=== PATIENT | female | born 1990 | race Caucasian/White ===

== ENCOUNTER → 2019-10-09 15:29 | Outpatient (BNVA) | payer MEDICAID, SELFPAY | PROVIDERS: Family Provider Nurse Practitioner Family; PCP Nurse Practitioner Family; Visit Provider Nurse Practitioner Family | DX: M25.579 Pain in unspecified ankle and joints of unspecified foot (principal) | CPT/HCPCS: 73600; 73610 ==

== ENCOUNTER 2020-06-05 12:52 | Emergency (ER) | payer MEDICAID, SELFPAY ==
[2020-06-05] VITALS (7 sets, daily range): BP systolic 121–142; BP diastolic 68–93; PULSE 63–94; RESP 18; TEMP 36.9–37.1; O2SAT 97–99; BMI 21.9
--- NOTE | 2020-06-05 14:48 | CT_ITS ---
WS: [id number] CT ABDOMEN PELVIS TECHNIQUE: Contrast-enhanced CT of the abdomen and pelvis with coronal and sagittal reformatted image s. CLINICAL INFORMATION: gi bleed COMPARISON: None. DLP: 417.[address] scans at [facility] use at least one of these dose optimization techniques: automat ed exposure control; mA and/or kV adjustment per patient size (includes targeted exams where dose is matched to clinical indication); or iterative reconstruction. FINDINGS: Normal liver. Prior cholecystectomy. Normal portal vein and splenic vein. Adrenal glands are normal. Normal renal parenchymal enhancement. No hydronephrosis. Small right renal cyst. Lungs bases are well aerated. Normal pancreas. Normal caliber abdominal aorta. Peripheral enhancing l eft ovarian cystic lesion likely hemorrhagic or corpus luteum cyst measuring 3.1 x 2.8 cm. Tiny amoun t of free fluid in the pelvis. Normal sigmoid colon. No evidence of high-grade small or large bowel o bstruction. Tiny fat-containing umbilical hernia. Lung bases are well aerated. Normal lumbar spine. P rior hysterectomy. CT/CT abdomen pelvis w con* [id number] IMPRESSION: 1. Normal appendix in the right lower quadrant. No evidence of acute appendici tis. 2. No evidence of small or large bowel obstruction. 3. Peripheral enhancing left ovarian cyst measuring 2.8 x 3.0 cm with a small amount of free fluid in the cul-de-sac. This likely represents corpus luteum or hemorrhagic cyst. This can be followed up in one to 2 menstrual cycles with ul trasound pelvis. 4. Normal sigmoid colon. 5. Normal renal parenchymal enhancement. No hydronephrosis. Incidental small r ight renal cyst. 6. Prior cholecystectomy and hysterectomy.
--- NOTE | 2020-06-05 14:48 | W.ED.GIBLEED ---
HPI - GI Bleed General: Chief complaint: GI Bleed Stated complaint: BLEEDING OUT OF RECTUM Time Seen by Provider: 06/05/20 14:48 Source: patient Mode of arrival: ambulatory Limitations: no limitations History of Present Illness: HPI Narrative: Patient comes in today with episodes of blood in stool starting today. Patient has reported some lower abdominal pain for the last 2 days. Patient appears well. Patient appears in no acute distress. MD complaint: gross hematochezia Review of Systems General: Reports: 10 or more systems reviewed and unremarkable except in HPI and below GI: Reports: hematochezia PFSH ED PFSH: Social History (Updated 10/09/19 @ 15:23 by Gretchen Cazares LPN) Smoking and tobacco status: current every day smoker Alcohol intake: current Physical Exam Const: COMMON NORMALS: no acute distress and patient oriented x3 GENERAL APPEARANCE: cooperative HENMT: COMMON NORMALS: normocephalic and Normal external nose present HEAD & SCALP: normal to inspection and normocephalic NOSE: Normal external nose present MOUTH: Normal oral and palatal mucosa present THROAT: posterior oropharynx normal Eye: GENERAL EYE: appearance normal, both eyes and all related structures Neck/C-Spine: COMMON NORMALS: full ROM Lymph: LYMPHATIC: no lymphadenopathy noted Chest: COMMONS NORMALS: normal inspection of the chest Resp: COMMON NORMALS: normal respiratory effort EFFORT & INSPECTION: Yes able to speak in complete sentences Cardio: COMMON NORMALS: regular rate and regular rhythm RATE: regular rate RHYTHM: regular rhythm GI: COMMON NORMALS: non-tender RECTAL EXAM: normal sphincter tone and heme positive stool : COMMON NORMALS: Yes no CVA tenderness BLADDER/KIDNEY EXAM: Yes no CVA tenderness Back/Pelvis: COMMON NORMALS: no CVA tenderness and thoracic and lumbar spine normal to inspection Extremity: COMMON NORMALS: normal to inspection Neuro: COMMON NORMALS: patient oriented x3 and moves all extremities Psych: COMMON NORMALS: mental status grossly normal and cooperative Skin: COMMON NORMALS: no rashes or lesions noted GENERAL SKIN EXAM: no rashes or lesions noted Course Vital Signs: Vital signs: Vital Signs Temperature 98.5 F 06/05/20 12:56 Pulse Rate 71 06/05/20 17:20 Respiratory Rate 18 06/05/20 17:20 Blood Pressure 122/75 06/05/20 17:20 Pulse Oximetry 97 12/29/20 17:20 MDM - GI Bleed MDM Narrative: Medical decision making narrative: Patient comes in today with complaints of blood in stool. On exam patient's abdomen soft with some lower abdominal tenderness. Bowel sounds are present. Skin is warm and dry. Vital signs are normal. Respirations are even lungs are clear to auscultation. Differential diagnosis includes diverticulitis, colitis, appendicitis, tumor or mass. Laboratory values noted a hemoglobin of 12.9 with hematocrit of 39.3. CMP was normal. Liver enzymes were normal. White blood cell count was slightly elevated 11,000. Rectal exam did note some sara blood with a positive Hemoccult. CT scan noted no significant abnormality in the bowel, it did note a ovarian cyst. Reviewed exam with patient recommended Cipro and Flagyl for treatment of probable colitis or bacterial gastroenteritis. Also recommended patient follow-up for colonoscopy for evaluation of blood in the rectum. Patient reported understanding agreed to plan. Case management referral placed during the blood per rectum. Lab Data: Labs: Lab Results 06/05/20 06/05/20 06/05/20 Range/Units 14:42 14:55 14:55 WBC 11.0 H (4.0-10.0) 10^3/ uL RBC 4.14 (4.1-5.3) 10^6/u L Hgb 12.9 (11.5-15.3) g/dL Hct 39.3 (37.0-47.0) % MCV 94.9 (81-99) fL MCH 31.2 (28.0-34.0) pg MCHC 32.8 (30.0-36.0) g/dL RDW 12.6 (12.1-15.1) % Plt Count 235 (130-400) 10^3/c mm MPV 11.3 H (7.4-10.4) fL Neut % (Auto) 69.2 % Lymph % (Auto) 26.5 % [place] % (Auto) 3.6 % Eos % (Auto) 0.0 % Baso % (Auto) 0.3 % Neut # (Auto) 7.63 (1.8-7.7) 10^3/u L Lymph # (Auto) 2.9 (0.8-4.8) 10^3/u L [place] # (Auto) 0.4 (0.2-0.9) 10^3/u L Eos # (Auto) 0.0 (0.0-0.8) 10^3/u L Baso # (Auto) 0.0 (0.0-0.1) 10^3/u L Nucleated RBC % (a uto) 0 % Nucleated RBCs # 0.0 /100WBC Sodium 138 (136-145) mmol/L Potassium 3.9 (3.5-5.1) mmol/L Chloride 105 (98-107) mmol/L Carbon Dioxide 23 (22-29) mmol/L Anion Gap 13.9 (5-19) BUN 9 (6-20) mg/dL Creatinine 0.7 (0.5-0.9) mg/dL GFR Calculation 97.6 (90-130) mL/min Glucose 87 (65-115) mg/dL Calculated Osmolal ity 284 L (285-295) mOsm/k g Calcium 9.5 (8.5-10.5) mg/dL Total Bilirubin 0.3 (0.15-1.2) mg/dL AST 16 (0-32) U/L ALT 13 (0-33) U/L Alkaline Phosphata se 68 (35-105) IU/L Total Protein 7.2 (6.6-8.7) g/dL Albumin 4.4 (3.5-5.2) g/dL Globulin 2.8 (1.3-4.6) g/dL Lipase 29 (13-60) U/L HCG, Qual (Negative) Urine Color Yellow (Yellow) Urine Appearance Clear (CLEAR) Urine pH 5 (5-7) Ur Specific Gravit y 1.005 (1.005-1.030) Urine Protein Neg (Negative) Urine Glucose (UA) Norm (Normal) Urine Ketones 1+ H (Negative) Urine Blood Neg (Negative) Urine Nitrate Negative (Negative) Urine Bilirubin Neg (Negative) Urine Urobilinogen Norm (Negative) mg/dL Ur Leukocyte Rosanna ase Negative (Negative) 06/05/20 Range/Units 14:55 WBC (4.0-10.0) 10^3/ uL RBC (4.1-5.3) 10^6/u L Hgb (11.5-15.3) g/dL Hct (37.0-47.0) % MCV (81-99) fL MCH (28.0-34.0) pg MCHC (30.0-36.0) g/dL RDW (12.1-15.1) % Plt Count (130-400) 10^3/c mm MPV (7.4-10.4) fL Neut % (Auto) % Lymph % (Auto) % [place] % (Auto) % Eos % (Auto) % Baso % (Auto) % Neut # (Auto) (1.8-7.7) 10^3/u L Lymph # (Auto) (0.8-4.8) 10^3/u L [place] # (Auto) (0.2-0.9) 10^3/u L Eos # (Auto) (0.0-0.8) 10^3/u L Baso # (Auto) (0.0-0.1) 10^3/u L Nucleated RBC % (a uto) % Nucleated RBCs # /100WBC Sodium (136-145) mmol/L Potassium (3.5-5.1) mmol/L Chloride (98-107) mmol/L Carbon Dioxide (22-29) mmol/L Anion Gap (5-19) BUN (6-20) mg/dL Creatinine (0.5-0.9) mg/dL GFR Calculation (90-130) mL/min Glucose (65-115) mg/dL Calculated Osmolal ity (285-295) mOsm/k g Calcium (8.5-10.5) mg/dL Total Bilirubin (0.15-1.2) mg/dL AST (0-32) U/L ALT (0-33) U/L Alkaline Phosphata se (35-105) IU/L Total Protein (6.6-8.7) g/dL Albumin (3.5-5.2) g/dL Globulin (1.3-4.6) g/dL Lipase (13-60) U/L HCG, Qual Negative (Negative) Urine Color (Yellow) Urine Appearance (CLEAR) Urine pH (5-7) Ur Specific Gravit y (1.005-1.030) Urine Protein (Negative) Urine Glucose (UA) (Normal) Urine Ketones (Negative) Urine Blood (Negative) Urine Nitrate (Negative) Urine Bilirubin (Negative) Urine Urobilinogen (Negative) mg/dL Ur Leukocyte Rosanna ase (Negative) Discharge Plan Discharge Patient Disposition: Home Clinical Impression: Hematochezia Condition: Stable Prescriptions: New Cipro 500 mg tablet 500 mg PO BID Qty: 10 RF: 0 metronidazole 500 mg tablet 500 mg PO BID Qty: 10 RF: 0 No Action Tylenol 325 mg Tablet 325 - 650 mg PO Q6H PRN (Reason: PAIN/FEVER) RF: 0 Discharge Orders: Discharge ED (Routine); Ordered 06/05/20 Ordered By: Lucius Pickard Referrals: Simin Tamayo FNP [Primary Care Provider] - Discharge Diet: Usual diet Discharge Activity: Increase activity as tolerated Activity Restrictions/Additional Instructions: Drink plenty of fluids. Take medication as directed. Follow-up with primary care. Follow-up with section laborer/surgeon for endoscopy. Return to the emergency department for new concerns. Coding Level of Care Code ED Systems Integration Manager for [place]ter Fwd Exam Comprehensive
[2020-06-05 15:11] LABS: Add Urine Microscopic? NO
[2020-06-05 15:12] LABS: Basophils % 0.3 %; Hematocrit 39.3 % (37.0-47.0); Hemoglobin 12.9 g/dL (11.5-15.3); Lymphocytes # 2.9 10^3/uL (0.8-4.8); Lymphocytes % 26.5 %; Mean Corpuscular HGB Conc 32.8 g/dL (30.0-36.0); Mean Corpuscular Hemoglobin 31.2 pg (28.0-34.0); Mean Corpuscular Volume 94.9 fL (81-99); Mean Platelet Volume 11.3 fL (7.4-10.4); Monocytes # 0.4 10^3/uL (0.2-0.9); Monocytes % 3.6 %; Neutrophils # 7.63 10^3/uL (1.8-7.7); Neutrophils % 69.2 %; Nucleated Red Blood Cells % 0 %; Platelet Count 235 10^3/cmm (130-400); Red Blood Count 4.14 10^6/uL (4.1-5.3); Red Cell Distribution Width 12.6 % (12.1-15.1)
[2020-06-05 15:13] LABS: Bilirubin Urine Neg (Negative); Blood Urine Neg (Negative); Glucose Urine UA Norm (Normal); Ketones Urine 1+ (Negative); Leukocyte Esterase Urine Negative (Negative); Nitrate Urine Negative (Negative); Protein Urine Neg (Negative); Specific Gravity, Urine 1.005 (1.005-1.030); Urine Appearance Clear (CLEAR); Urine Color Yellow (Yellow); Urobilinogen Urine Norm (Negative); pH Urine 5 (5-7)
[2020-06-05 15:25] LABS: HCG, Serum Qual Negative (Negative)
[2020-06-05 15:31] LABS: Alanine Aminotransferase 13 U/L (0-33); Albumin Level 4.4 g/dL (3.5-5.2); Alkaline Phosphatase 68 IU/L (35-105); Anion Gap 13.9 (5-19); Aspartate Amino Transferase 16 U/L (0-32); Blood Urea Nitrogen 9 mg/dL (6-20); Calcium 9.5 mg/dL (8.5-10.5); Carbon Dioxide 23 mmol/L (22-29); Chloride 105 mmol/L (98-107); Globulin 2.8 g/dL (1.3-4.6); Glomerular Filtration Rate 97.6 mL/min (90-130); Glucose 87 mg/dL (65-115); Lipase 29 U/L (13-60); Osmolality Calculated 284 mOsm/kg (285-295); Potassium 3.9 mmol/L (3.5-5.1); Sodium 138 mmol/L (136-145); Total Bilirubin 0.3 mg/dL (0.15-1.2); Total Protein 7.2 g/dL (6.6-8.7)
[2020-06-05] MEDS: iohexol 300 mg/mL 100 mL Btl IV (16:20)
--- NOTE | 2020-06-06 08:53 | DCPLANNER ---
manager consumer had message to schedule a follow up appointment for patient with general surgery. manager consumer emailed Gabriel at general surgery patients information. Patients information will be printed and reviewed. Clinic will call patient with appointment information.
--- NOTE | 2020-06-08 10:11 | DCPLANNER ---
Patient has a follow up appointment scheduled for Thursday, June 11, [address] at 9:[address] Lopez. Clinic will call patient with appointment information.
--- NOTE | 2020-06-27 15:52 | DCPLANNER ---
Patient had a follow up appointment scheduled for 06.11.20 with general surgery - patient did attend the appointment.
== END 2020-06-05 17:29 | disposition home or self-care (01) ==
PROVIDERS: Emergency Provider Nurse Practitioner Family; PCP Nurse Practitioner Family
DX: K92.1 Melena (principal); F17.210 Nicotine dependence, cigarettes, uncomplicated
CPT/HCPCS: 12345; 74177; 80053; 81003; 82272; 83690; 84703; 85025; 99283; Q9967

== ENCOUNTER → 2020-06-11 14:40 | Outpatient (BNVA) | payer MEDICAID, SELFPAY | PROVIDERS: PCP Nurse Practitioner Family; Visit Provider Nurse Practitioner Family | DX: K92.1 Melena (principal); R10.31 Right lower quadrant pain | CPT/HCPCS: 80053; 85025 ==

== ENCOUNTER → 2020-06-21 13:26 | Outpatient (BNVA) | payer MEDICAID, SELFPAY | PROVIDERS: PCP Nurse Practitioner Family; Visit Provider Nurse Practitioner Family | DX: R10.31 Right lower quadrant pain (principal) | CPT/HCPCS: 81003; 85025; 87086 ==

== ENCOUNTER → 2020-06-22 11:14 | Outpatient (BNVA) | payer MEDICAID, SELFPAY | PROVIDERS: PCP Nurse Practitioner Family; Visit Provider Surgery | DX: R10.31 Right lower quadrant pain (principal) | CPT/HCPCS: 87635 ==

== ENCOUNTER 2020-06-27 05:46 | Day surgery (SDC) | payer MEDICAID, SELFPAY ==
[2020-06-25 13:44] VITALS: BMI 20.9
[2020-06-27 06:14] VITALS: BP 119/78; PULSE 89; RESP 18; TEMP 36.6; O2SAT 97
--- NOTE | 2020-06-27 06:15 | W.PM.OPSUD ---
Surgery/Procedure H&P Update DATE OF PROCEDURE: June 27, 2020 DATE H&P PERFORMED: 06/11/20 H&P UPDATE INFORMATION: I have reviewed H&P completed within last 30 days, I have examined patient prior to procedure and No changes to prior documentation PREOP DIAGNOSIS: Bleeding per rectum PRIMARY INDICATION FOR PROCEDURE: The same and Abdominal pain PLANNED PROCEDURE: Operation Date: 06/27/20 07:00 Proposed Procedures p EGD 00285 36091 R10.31 K62.5(Not Applicable) - Louie Lopez MD s Colonoscopy(Not Applicable) - Louie Lopez MD
[2020-06-27] MEDS: sodium chloride 0.9% 1,000 ML 30 ML IV (06:20)
--- NOTE | 2020-06-27 06:36 | ANES.PREANE2 ---
Pre-Anesthetic Assessment Pre-Anesthetic Assessment: Height/Weight: Height 1.68 m Weight 58.967 kg Temp Pulse Resp BP Pulse Ox 97.8 F 89 18 119/78 97 06/27/20 06:14 06/27/20 06:14 06/27/20 06:14 06/27/20 06:14 06/27/20 06:14 Preop Diagnosis: Bleeding per rectum Proposed Procedure: Operation Date: 06/27/20 07:00 Proposed Procedures p EGD [id number] R10.31 K62.5(Not Applicable) - Louie Lopez MD s Colonoscopy(Not Applicable) - Louie Lopez MD Familial anesthetic complications: Mom takes forever to wake up Was Beta Leonardo taken within 24 hours: N/A Last intake: Intake NPO > 8 hrs Last Liquid Date 06/26/20 Last Solid Date 06/25/20 Social: Social History: Tobacco Exam: Pre-Anes Outpt Exam: alert, oriented x 3, clear to auscultation bilaterally and regular rate & rhythm Airway: Cervical ROM: WNL MP: 2 Additional comments: extremely poor dentition, rotting, chipped, missing in majority of teeth Pulmonary: Pulmonary: Asthma Anesthetic Plan: ASA status: 2 Anesthesia: MAC Risk of > 500 ml blood loss (7ml/kg in children): No Meds/Allergies Current Medications: Current Medications Generic Name Dose Route Start Last Admin Trade Name Freq PRN Reason Stop Dose Admin Sodium Chloride 1,000 mls @ 30 ml s/hr 06/27/20 06:15 06/27/20 06:20 Sodium Chloride 0.9% IV 06/28/20 06:14 30 mls/hr .Q24H DOMINICK Administration PFSH Anesthesia PFSH: Medical History delivery delivered x 3 H/O cancer of uterus H/O polycystic ovarian syndrome Surgical History H/O laparoscopy H/O skin graft on left lower leg History of hysterectomy for cancer still has ovaries Hx of cholecystectomy Hx of tubal ligation S/P tonsillectomy and adenoidectomy Family History Mother Anesthesia complication Father Hypertension Grandfather Cancer colon cancer, melanoma Other Diabetes Denies family history of CAD (coronary artery disease) Bleeding disorder Social History Smoking and tobacco status: current every day smoker cigarettes Packs smoked per day: 1.5 Years cigarettes smoked: 20 [ Other cigarette details: 2 PPD if stressed ] Second hand smoke exposure: Yes Alcohol intake: never Lives independently: Yes Household members: spouse Marital status: Current occupational status: employed 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
[2020-06-27 07:34] VITALS: BP 130/91; PULSE 78; RESP 18; TEMP 36.1; O2SAT 99
--- NOTE | 2020-06-27 07:38 | ANE.PACU2 ---
Inpatient post-anesthesia follow up: Airway intact: Yes Vital signs: Temperature 97 F Pulse Rate 78 Respiratory Rate 18 Blood Pressure 130/91 Pulse Oximetry 99 Oxygen Delivery Me thod Room Air Oxygen Flow Rate Fraction of Inspir ed Oxygen Hydration adequate: Yes Nausea and vomiting: No Pain level: 1 Mental status: Baseline
[2020-06-27 07:47] VITALS: BP 114/78; PULSE 64; RESP 18; O2SAT 98
--- NOTE | 2020-06-27 18:32 | ANE.PACU2 ---
Inpatient post-anesthesia follow up: Airway intact: Yes Vital signs: Temperature 97 F Pulse Rate 64 Respiratory Rate 18 Blood Pressure 114/78 Pulse Oximetry 98 Oxygen Delivery Me thod Room Air Oxygen Flow Rate Fraction of Inspir ed Oxygen Hydration adequate: Yes Nausea and vomiting: No Pain level: 1 Mental status: Baseline
[2020-06-28 05:56] LABS: H. Pylori / CLO Test Negative
== END 2020-06-27 08:03 | disposition home or self-care (01) ==
PROVIDERS: PCP Nurse Practitioner Family; Visit Provider Surgery
PROC: 0DJ08ZZ Inspection of Upper Intestinal Tract, Via Natural or Artificial Opening Endoscopic (ICD-10-PCS; CPT 43235; principal; 2020-06-27 07:00)
PROC: 0DJD8ZZ Inspection of Lower Intestinal Tract, Via Natural or Artificial Opening Endoscopic (ICD-10-PCS; CPT 45378; 2020-06-27 07:00)
DX: K62.5 Hemorrhage of anus and rectum (principal); F17.210 Nicotine dependence, cigarettes, uncomplicated; K64.4 Residual hemorrhoidal skin tags; K21.9 Gastro-esophageal reflux disease without esophagitis; K29.70 Gastritis, unspecified, without bleeding; J45.909 Unspecified asthma, uncomplicated; Z85.42 Personal history of malignant neoplasm of other parts of uterus; E28.2 Polycystic ovarian syndrome
CPT/HCPCS: 12345; 43239; 45378; 82274; 83630; 87077; 87493; 87506; 88305; J2704; J7030

== ENCOUNTER → 2021-05-07 10:41 | Outpatient (BNVA) | payer BC, MEDICAID, SELFPAY | PROVIDERS: PCP Nurse Practitioner Family; Visit Provider Nurse Practitioner Family | DX: G43.909 Migraine, unspecified, not intractable, without status migrainosus (principal); Z13.6 Encounter for screening for cardiovascular disorders; R59.1 Generalized enlarged lymph nodes; R63.4 Abnormal weight loss | CPT/HCPCS: 80053; 80061; 81000; 82306; 82607; 83735; 84443; 85025; 87491; 87591; 87661 ==

== ENCOUNTER → 2021-05-13 10:35 | Outpatient (BNVA) | payer BC, MEDICAID, SELFPAY | PROVIDERS: PCP Nurse Practitioner Family; Visit Provider Nurse Practitioner Family | DX: R63.4 Abnormal weight loss (principal) | CPT/HCPCS: 81003 ==

== ENCOUNTER 2021-05-17 01:13 | Emergency (ER) | payer BC, MEDICAID, SELFPAY ==
[2021-05-17 01:14] VITALS: BP 138/89; PULSE 108; RESP 16; TEMP 36.5; O2SAT 97; BMI 17.6
--- NOTE | 2021-05-17 01:24 | CTR_ITS ---
PROCEDURE INFORMATION: Exam: CT Head Without Contrast Exam date and time: 05/17/2021 1:24 AM Age: 31 years old Clinical indication: Patient HX: Patient reported to have had seizure activity while at work. Patient is lethargic. No loc. TECHNIQUE: Imaging protocol: Computed tomography of the head without contrast. Radiation optimization: All CT scans at this facility use at least one of these dose optimization techniques: automated exposure control; mA and/or kV adjustment per patient size (includes targeted exams where dose is matched to clinical indication); or iterative reconstruction. COMPARISON: No relevant prior studies available. RADIATION DOSE METRICS: Total DLP (mGy-cm): 769.55 FINDINGS: Limitations: Motion artifacts. Brain: No suggestion of abnormal density in the brain or acute intracranial hemorrhage. Cerebral ventricles: No ventriculomegaly. Paranasal sinuses: Visualized sinuses unremarkable. Mastoid air cells: Visualized mastoids unremarkable. Orbital cavity: Possible dysconjugate gaze. Bones/joints: Unremarkable. No acute fracture. Soft tissues: Unremarkable. CT/CT head wo con* [id number] IMPRESSION: No acute finding.
--- NOTE | 2021-05-17 01:30 | ED_ITS ---
HPI - Seizure General: Chief Complaint: Seizure Stated Complaint: SEIZURE Time Seen by Provider: 05/17/21 01:19 Source: patient Mode of arrival: ambulatory Limitations: no limitations History of Present Illness: HPI Narrative: 31-year-old female who is here with EMS for possible seizure per EMS she has had 8 supposed seizures in the last 30 minutes they state of the parents of pseudoseizures she does not have stop breathing does not have any LOC and has been speaking through them. Patient states she is been under a lot of stress has had some generalized weakness denies any vomiting denies any diarrhea she was at work tonight when she had these attacks. She denies headache denies any head injury. Associated symptoms: Deny chest pain, chills or fever(s) Review of Systems Const: Denies: fever(s), chills, body aches or change in appetite Eyes: Denies: blurry vision or eye discomfort ENMT: Denies: throat pain or dental pain Card: Denies: chest pain Resp: Denies: dyspnea GI: Denies: abdominal pain, nausea, vomiting or diarrhea : Denies: dysuria Musc: Denies: neck pain or back pain Skin/Breast: Denies: rash Neuro: Reports: seizure-like activity Psych: Denies: depression Jay/Lymph: Denies: easy bruising All/Imm: Denies: urticaria PFSH ED PFSH: Medical History delivery delivered x 3 H/O cancer of uterus H/O polycystic ovarian syndrome Surgical History H/O laparoscopy H/O skin graft on left lower leg History of colonoscopy (~06/2020) History of esophagogastroduodenoscopy (EGD) (~06/2020) History of hysterectomy for cancer still has ovaries Hx of cholecystectomy Hx of tubal ligation S/P tonsillectomy and adenoidectomy Family History Mother Anesthesia complication Father Hypertension Grandfather Cancer colon cancer, melanoma Other Diabetes Denies family history of CAD (coronary artery disease) Bleeding disorder Social History Smoking and tobacco status: current every day smoker cigarettes Packs smoked per day: 1.5 Years cigarettes smoked: 20 [ Other cigarette details: 2 PPD if stressed ] Second hand smoke exposure: Yes Alcohol intake: never Lives independently: Yes Household members: spouse Marital status: Current occupational status: employed Current occupation: [employer] History of recent travel: No Current gender identity: Female Physical Exam Const: COMMON NORMALS: no acute distress, patient oriented x3 and healthy appearing HENMT: COMMON NORMALS: normocephalic and atraumatic HEAD & SCALP: normocephalic and atraumatic Eye: COMMON NORMALS: Equal, round and reactive pupils present and EOMs intact bilaterally PUPIL: Yes Equal, round and reactive pupils present Neck/C-Spine: COMMON NORMALS: full ROM and supple Chest: COMMONS NORMALS: normal inspection of the chest and normal palpation of entire chest wall Resp: COMMON NORMALS: normal respiratory effort, No retractions, No use of accessory muscles and clear to auscultation bilaterally AUSCULTATION: clear to auscultation bilaterally Cardio: COMMON NORMALS: regular rhythm and No murmurs present (Cardio) RATE: tachycardic RHYTHM: regular rhythm GI: COMMON NORMALS: Normal to inspection, nondistended, normoactive bowel sounds present, Soft to palpation, non-tender and no masses PALPATION: Yes Soft to palpation Extremity: COMMON NORMALS: normal to inspection and full ROM Neuro: COMMON NORMALS: patient oriented x3, moves all extremities and no focal motor deficits Psych: COMMON NORMALS: mental status grossly normal, Normal thought process present and cooperative THOUGHT PROCESS: Normal thought process present Skin: COMMON NORMALS: no rashes or lesions noted and no wounds GENERAL SKIN EXAM: no rashes or lesions noted Course Vital Signs: Vital signs: Vital Signs Temperature 97.7 F 05/17/21 01:14 Pulse Rate 64 05/17/21 04:07 Respiratory Rate 18 05/17/21 04:07 Blood Pressure 106/64 05/17/21 04:07 Pulse Oximetry 98 05/17/21 04:07 MDM - Seizure MDM Narrative: Medical decision making narrative: Patient presents here with a possible seizure patient hears improved after Ativan blood work head CT are all normal unsure if this is an actual seizure she has no history of seizures will not start any meds at this time she is to follow-up with neurology return if worsening patient's back to her baseline is well-appearing here ambulatory patient discharged with her . Lab Data: Labs: Lab Results 05/17/21 05/17/21 05/17/21 02:58 02:58 02:58 WBC 11.1 10^3/uL H 10 ^3/uL (4.0-10.0) RBC 3.41 10^6/uL L 10 ^6/uL (4.1-5.3) Hgb 10.8 g/dL L g/dL (11.5-15.3) Hct 32.3 % L % (37.0-47.0) MCV 94.7 fl fl (81-99) MCH 31.7 pg pg (28.0-34.0) MCHC 33.4 g/dL g/dL (30.0-36.0) RDW 11.9 % L % (12.1-15.1) Plt Count 209 10^3/cmm 10^3 /cmm (130-400) MPV 11.0 fL H fL (7.4-10.4) Neut % (Auto) 71.5 % % Lymph % (Auto) 24.0 % % [place] % (Auto) 4.0 % % Eos % (Auto) 0.1 % % Baso % (Auto) 0.2 % % Neut # (Auto) 7.92 10^3/uL H 10 ^3/uL (1.8-7.7) Lymph # (Auto) 2.7 10^3/uL 10^3/ uL (0.8-4.8) [place] # (Auto) 0.4 10^3/uL 10^3/ uL (0.2-0.9) Eos # (Auto) 0.0 10^3/uL 10^3/ uL (0.0-0.8) Baso # (Auto) 0.0 10^3/uL 10^3/ uL (0.0-0.1) Nucleated RBC % (a uto) 0 % % Nucleated RBCs # 0.0 /100WBC /100W BC Sodium 140 mmol/L mmol/L (136-145) Potassium 4.2 mmol/L mmol/L (3.5-5.1) Chloride 109 mmol/L H mmol /L (98-107) Carbon Dioxide 20 mmol/L L mmol/ L (22-29) Anion Gap 15.2 (5-19) BUN 7 mg/dL mg/dL (6-20) Creatinine 0.6 mg/dL mg/dL (0.5-0.9) GFR Calculation 115.9 mL/min mL/m in (90-130) Glucose 93 mg/dL mg/dL (65-115) Calculated Osmolal ity 288 mOsm/kg mOsm/ kg (285-295) Calcium 7.7 mg/dL L mg/dL (8.5-10.5) Total Bilirubin 0.2 mg/dL mg/dL (0.15-1.2) AST 10 U/L U/L (0-32) ALT 8 U/L U/L (0-33) Alkaline Phosphata se 48 IU/L IU/L (35-105) Total Protein 5.2 g/dL L g/dL (6.6-8.7) Albumin 3.5 g/dL g/dL (3.5-5.2) Globulin 1.7 g/dL g/dL (1.3-4.6) HCG, Qual Negative (Negative) Imaging Data^: CT Head: Attestation: I personally reviewed and interpreted this imaging study as follows: Radiologist's impression: [address] [address] [address] Scan Report Signed Patient: Christel Altamirano Unit #: [id number] : 1990 Acct#:O [id number] Age/Sex: 31 / F ADM Date: 05/17/21 Loc: ER Room/Bed: Attending Dr: Ordering Provider/Ordering MD: Karen Frey MD Date of Service: 05/17/21 Procedure(s): CT head wo con* [id number] Accession Number(s): [id number] Report Number: [id number] PROCEDURE INFORMATION: Exam: CT Head Without Contrast Exam date and time: 05/17/2021 1:24 AM Age: 31 years old Clinical indication: Patient HX: Patient reported to have had seizure activity while at work. Patient is lethargic. No loc. TECHNIQUE: Imaging protocol: Computed tomography of the head without contrast. Radiation optimization: All CT scans at this facility use at least one of these dose optimization techniques: automated exposure control; mA and/or kV adjustment per patient size (includes targeted exams where dose is matched to clinical indication); or iterative reconstruction. COMPARISON: No relevant prior studies available. RADIATION DOSE METRICS: Total DLP (mGy-cm): 769.55 FINDINGS: Limitations: Motion artifacts. Brain: No suggestion of abnormal density in the brain or acute intracranial hemorrhage. Cerebral ventricles: No ventriculomegaly. Paranasal sinuses: Visualized sinuses unremarkable. Mastoid air cells: Visualized mastoids unremarkable. Orbital cavity: Possible dysconjugate gaze. Bones/joints: Unremarkable. No acute fracture. Soft tissues: Unremarkable. CT/CT head wo con* [id number] IMPRESSION: No acute finding. Dictated By: Megan Romero MD Signed By: Megan Romero MD Signed Date/Time: 05/17/21201 DD/ 3 EKG Data^: EKG 1: Attestation: I personally reviewed and interpreted this EKG as follows: EKG interpretation date: 05/17/21 EKG interpretation time: 01:29 Interpretation: sinus tach hr [address] or t wave abnormalities qrs 95 qtc 409 Discharge Plan Discharge Patient Disposition: Home Clinical Impression: Generalized seizure Condition: Stable Prescriptions: No Action pantoprazole [Protonix] 40 mg tablet,delayed release (DR/EC) 40 mg PO DAILY Qty: 30 RF: 1 ondansetron 4 mg tablet,disintegrating 4 mg PO Q8H PRN (Reason: nausea and vomiting) Qty: 30 RF: 1 acetaminophen [Tylenol] 325 mg Tablet 325 - 650 mg PO Q6H PRN (Reason: PAIN/FEVER) RF: 0 Discharge Orders: Discharge ED (Routine); Ordered 05/17/21 Ordered By: Karen Frye Referrals: Olga Krueger MD [Physician] - 1-3 days Discharge Diet: Advance as tolerated Discharge Activity: Resume usual activity Patient Instructions: Recurrent Seizures in Adults (ED) Coding Level of Care Code ED Paper Mill Manager for Chg Fwd Exam Comprehensive
[2021-05-17 01:31] VITALS: BP 133/84; PULSE 114; RESP 20; O2SAT 100
[2021-05-17] MEDS: sodium chloride 0.9% 1,000 ML 999 ML IV (01:33)
[2021-05-17] MEDS: LORazepam 2 mg/mL INJ 1 mL 1 MG IVP (01:33)
[2021-05-17 02:57] VITALS: BP 106/48; PULSE 85; RESP 18; O2SAT 97
[2021-05-17 03:10] LABS: Basophils % 0.2 %; Eosinophils % 0.1 %; Hematocrit 32.3 % (37.0-47.0); Hemoglobin 10.8 g/dL (11.5-15.3); Lymphocytes # 2.7 10^3/uL (0.8-4.8); Mean Corpuscular HGB Conc 33.4 g/dL (30.0-36.0); Mean Corpuscular Hemoglobin 31.7 pg (28.0-34.0); Mean Corpuscular Volume 94.7 fl (81-99); Monocytes # 0.4 10^3/uL (0.2-0.9); Neutrophils # 7.92 10^3/uL (1.8-7.7); Neutrophils % 71.5 %; Nucleated Red Blood Cells % 0 %; Platelet Count 209 10^3/cmm (130-400); Red Blood Count 3.41 10^6/uL (4.1-5.3); Red Cell Distribution Width 11.9 % (12.1-15.1); White Blood Count 11.1 10^3/uL (4.0-10.0)
[2021-05-17 03:30] LABS: HCG, Serum Qual Negative (Negative)
[2021-05-17 03:31] LABS: Alanine Aminotransferase 8 U/L (0-33); Albumin Level 3.5 g/dL (3.5-5.2); Alkaline Phosphatase 48 IU/L (35-105); Aspartate Amino Transferase 10 U/L (0-32); Blood Urea Nitrogen 7 mg/dL (6-20); Calcium 7.7 mg/dL (8.5-10.5); Carbon Dioxide 20 mmol/L (22-29); Chloride 109 mmol/L (98-107); Globulin 1.7 g/dL (1.3-4.6); Glomerular Filtration Rate 115.9 mL/min (90-130); Glucose 93 mg/dL (65-115); Osmolality Calculated 288 mOsm/kg (285-295); Sodium 140 mmol/L (136-145); Total Bilirubin 0.2 mg/dL (0.15-1.2); Total Protein 5.2 g/dL (6.6-8.7)
[2021-05-17 03:32] LABS: Anion Gap 15.2 (5-19); Potassium 4.2 mmol/L (3.5-5.1)
[2021-05-17 04:07] VITALS: BP 106/64; PULSE 64; RESP 18; O2SAT 98
[2021-05-17 05:41] VITALS: BP 92/44; PULSE 62; RESP 18; O2SAT 97
--- NOTE | 2021-05-20 14:15 | DCPLANNER ---
Addendum entered by Ina Lakhani 06/05/21 08:06: Patient had an appointment scheduled with Dr. Burton office, but appointment was cancelled. Original Note: human resources project manager had message to schedule a follow up appointment for patient with Dr. Krueger. human resources project manager emailed patients information to the neurology clinic. Patients information will be printed and reviewed. Clinic will call patient with appointment information.
== END 2021-05-17 05:43 | disposition home or self-care (01) ==
PROVIDERS: Emergency Provider Emergency Medicine
DX: G40.89 Other seizures (principal); Z85.42 Personal history of malignant neoplasm of other parts of uterus; F17.210 Nicotine dependence, cigarettes, uncomplicated
CPT/HCPCS: 70450; 80053; 84703; 85025; 96361; 96374; 99283; J2060; J7030

== ENCOUNTER → 2021-05-21 11:15 | Outpatient (BNVA) | payer BC, MEDICAID, SELFPAY | PROVIDERS: Visit Provider Nurse Practitioner Family | DX: R56.9 Unspecified convulsions (principal); M25.552 Pain in left hip; J02.9 Acute pharyngitis, unspecified; G43.909 Migraine, unspecified, not intractable, without status migrainosus | CPT/HCPCS: 73502; 87071; 87880 ==

== ENCOUNTER 2021-07-19 10:39 | Outpatient (CLI) | payer BC, MEDICAID, SELFPAY ==
--- NOTE | 2021-07-19 10:43 | CT_ITS ---
WS: [id number] CT CHEST TECHNIQUE: Noncontrast CT of the chest with coronal and sagittal reformatted images. CLINICAL INFORMATION: R63.4 - Abnormal weight loss COMPARISON: None. DLP: 489.[address] scans at [facility] use at least one of these dose optimization techniques: automated e xposure control; mA and/or kV adjustment per patient size (includes targeted exams where dose is matc hed to clinical indication); or iterative reconstruction. FINDINGS: Both lungs well aerated. No acute pulmonary infiltrates. No focal pneumonia or pleural fluid. No medi astinal or hilar lymphadenopathy. No axillary lymphadenopathy. Normal caliber thoracic aorta. Adrenal glands are normal. Prior cholecystectomy. Normal GE junction. Schmorl's nodes in the mid and lower t horacic spine. CT/CT chest wo con [id number] IMPRESSION: 1. Lungs are well aerated. No acute pulmonary infiltrates. 2. No mediastinal or hilar lymphadenopathy. No axillary lymphadenopathy. 3. No suspicious chest findings.
--- NOTE | 2021-07-19 10:52 | CT_ITS ---
WS: [id number] CT ABDOMEN PELVIS TECHNIQUE: Contrast-enhanced CT of the abdomen and pelvis with coronal and sagittal reformatted image s. CLINICAL INFORMATION: R63.4 - Abnormal weight loss COMPARISON: June 05, 2020 DLP: 772.[address] scans at [facility] use at least one of these dose optimization techniques: automated e xposure control; mA and/or kV adjustment per patient size (includes targeted exams where dose is matc hed to clinical indication); or iterative reconstruction. FINDINGS: Normal liver. Normal portal vein and splenic vein. Normal spleen. Normal GE junction. Lung bases are well aerated. Adrenal glands are normal. Normal renal parenchymal enhancement. No hydronephrosis. RIGHT renal cyst measuring 1.9 CM. Normal pancreatic parenchymal enhancement. Prior cholecystectomy. Normal caliber ab dominal aorta. No abdominal pelvic or inguinal lymphadenopathy. LEFT ovarian cyst measuring 4.3 x 3.6 cm. This was present on June 05, 2020 but is larger today. Recommend follow-up with ultrasound. Normal sigmoid colon. No evidence of high-grade small or large bowel obstruction. No free fluid in th e abdomen or pelvis. Normal lumbar spine. CT/CT abdomen pelvis w con* [id number] IMPRESSION: 1. Prior cholecystectomy and hysterectomy. 2. Normal renal parenchymal enhancement. No hydronephrosis. 3. Incidental simple RIGHT renal cyst measuring 1.9 cm. 4. LEFT ovarian low-attenuation cyst measuring 4.3 x 3.6 cm. Recommend interva l follow-up with ultrasound in one to 2 menstrual cycles. 5. No free fluid in the abdomen or pelvis. 6. No inguinal lymphadenopathy.
[2021-07-19] MEDS: iohexol 300 mg/mL 100 mL Btl IV (12:43)
[2021-07-19] MEDS: iohexol 300 mg/mL 50 mL Btl PO (12:43)
== END 2021-07-19 10:40 | disposition home or self-care (01) ==
LOC: RAD 10:42
PROVIDERS: Visit Provider Nurse Practitioner Family
DX: R63.4 Abnormal weight loss (principal); R59.1 Generalized enlarged lymph nodes; Z90.49 Acquired absence of other specified parts of digestive tract; Z90.710 Acquired absence of both cervix and uterus; N28.1 Cyst of kidney, acquired; N83.202 Unspecified ovarian cyst, left side
CPT/HCPCS: 71250; 74177

== ENCOUNTER 2021-07-30 11:39 | Outpatient (CLI) | payer BC, MEDICAID, SELFPAY ==
--- NOTE | 2021-07-30 11:45 | US_ITS ---
WS: [id number] ULTRASOUND SOFT TISSUES inguinal regions. HISTORY: R59.1 - Generalized enlarged lymph nodes COMPARISON: CT 07/19/2021. TECHNIQUE: 2-D and color Doppler imaging is submitted. There are small bilateral lymph nodes along the inguinal regions bilaterally. Normal fatty татьяна and n ormal cortex of the lymph nodes. No increased vascularity. US/US soft tissue/extremity [id number] IMPRESSION: Normal bilateral inguinal lymph nodes.
== END 2021-07-30 11:40 | disposition home or self-care (01) ==
LOC: RAD 11:41
PROVIDERS: PCP Nurse Practitioner Family; Visit Provider Nurse Practitioner Family
DX: R59.1 Generalized enlarged lymph nodes (principal)
CPT/HCPCS: 76882

== ENCOUNTER 2021-08-18 00:51 | Emergency (ER) | payer BC, MEDICAID, SELFPAY ==
[2021-08-18 00:55] VITALS: BP 119/74; PULSE 92; RESP 16; TEMP 36.7; O2SAT 98; BMI 19.7
--- NOTE | 2021-08-18 01:04 | XRR_ITS ---
PROCEDURE INFORMATION: Exam: XR Chest Exam date and time: 08/18/2021 1:04 AM Age: 31 years old Clinical indication: Other: Seizure; Additional info: Rodo TECHNIQUE: Imaging protocol: XR of the chest. Views: 1 view. COMPARISON: 1. CT chest wo con [id number] 2021-07-19 12:[address] abdomen pelvis w con* [id number] 2021-07-19 12:[address] abdomen pelvis w con* [id number] 2020-06-05 16:07 FINDINGS: Lungs: Unremarkable. No consolidation. Pleural spaces: Unremarkable. No pleural effusion. No pneumothorax. Heart/Mediastinum: Unremarkable. No cardiomegaly. Bones/joints: Unremarkable. XR/XR chest 1V portable [id number] IMPRESSION: No acute findings.
--- NOTE | 2021-08-18 01:04 | CTR_ITS ---
PROCEDURE INFORMATION: Exam: CT Head Without Contrast Exam date and time: 08/18/2021 1:04 AM Age: 31 years old Clinical indication: Condition or disease; Convulsions or seizures; Additional info: Sz TECHNIQUE: Imaging protocol: Computed tomography of the head without contrast. Radiation optimization: All CT scans at this facility use at least one of these dose optimization techniques: automated exposure control; mA and/or kV adjustment per patient size (includes targeted exams where dose is matched to clinical indication); or iterative reconstruction. COMPARISON: CT head wo con* [id number] 2021-05-17 01:39 RADIATION DOSE METRICS: Total DLP (mGy-cm): 1061.74 FINDINGS: Brain: Normal. No hemorrhage. Unremarkable white matter. No mass effect. Cerebral ventricles: No ventriculomegaly. Paranasal sinuses: Visualized sinuses are unremarkable. No fluid levels. Mastoid air cells: Visualized mastoid air cells are well aerated. Bones/joints: Unremarkable. No acute fracture. Soft tissues: Unremarkable. CT/CT head wo con* [id number] IMPRESSION: No acute intracranial abnormality.
--- NOTE | 2021-08-18 01:05 | ECG_ITS ---
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 Measurements Intervals [place] Rate: 84 P: 63 TN: 163 QRS: 77 QRSD: 93 T: 65 QT: 385 QTc: 455 Interpretive Statements SINUS RHYTHM No previous ECG available for comparison Electronically Signed On 08-18-2021 15:42:49 CDT by Ramiro Hillman M.D. [id number]
[2021-08-18 01:09] LABS: Basophils % 0.2 %; Hemoglobin 12.2 g/dL (11.5-15.3); Lymphocytes % 30.1 %; Mean Corpuscular HGB Conc 33.9 g/dL (30.0-36.0); Mean Corpuscular Hemoglobin 31.5 pg (28.0-34.0); Mean Platelet Volume 9.8 fL (7.4-10.4); Monocytes # 0.5 10^3/uL (0.2-0.9); Monocytes % 4.6 %; Neutrophils # 6.46 10^3/uL (1.8-7.7); Neutrophils % 64.9 %; Nucleated Red Blood Cells % 0 %; Platelet Count 255 10^3/cmm (130-400); Red Blood Count 3.87 10^6/uL (4.1-5.3); Red Cell Distribution Width 12.1 % (12.1-15.1)
[2021-08-18 01:22] LABS: HCG, Serum Qual Negative (Negative)
[2021-08-18 01:28] LABS: Alanine Aminotransferase 15 U/L (0-33); Albumin Level 3.9 g/dL (3.5-5.2); Alcohol Level < 10 mg/dL (0-10); Alkaline Phosphatase 56 IU/L (35-105); Anion Gap 11.2 (5-19); Aspartate Amino Transferase 12 U/L (0-32); Blood Urea Nitrogen 9 mg/dL (6-20); Calcium 8.1 mg/dL (8.5-10.5); Carbon Dioxide 25 mmol/L (22-29); Chloride 105 mmol/L (98-107); Creatine Phosphokinase 94 U/L (26-192); Glucose 96 mg/dL (65-115); Magnesium 1.8 mg/dL (1.7-2.3); Osmolality Calculated 283 mOsm/kg (285-295); Phosphorus 2.2 mg/dL (2.5-4.5); Potassium 4.2 mmol/L (3.5-5.1); Sodium 137 mmol/L (136-145); Total Bilirubin 0.2 mg/dL (0.15-1.2); Total Protein 5.9 g/dL (6.6-8.7)
[2021-08-18] MEDS: sodium chloride 0.9% 1,000 ML 999 ML IV (01:43)
[2021-08-18 03:47] LABS: Add Urine Microscopic? NO; Charge for UA Resulting for Rev
[2021-08-18 03:48] LABS: Bilirubin Urine Neg (Negative); Blood Urine Neg (Negative); Glucose Urine UA Norm (Normal); Ketones Urine Negative (Negative); Leukocyte Esterase Urine Negative (Negative); Nitrate Urine Negative (Negative); Protein Urine Neg (Negative); Specific Gravity, Urine 1.005 (1.005-1.030); Urine Appearance Clear (CLEAR); Urine Color Yellow (Yellow); Urobilinogen Urine Norm (Negative); pH Urine 7 (5-7)
--- NOTE | 2021-08-18 03:57 | ED_ITS ---
HPI - Seizure General: Chief Complaint: Seizure Stated Complaint: SEIZURE LIKE ACTIVITY Time Seen by Provider: 08/18/21 00:55 History of Present Illness: HPI Narrative: 31-year-old female, with a history of at least 1 prior seizure. She evidently according to family has seen neurology. It is not known whether the seizures are epileptic or not. She is not treated with antiepileptics. Has been noted she seized in bed at home for up to 45 minutes. She does not have recollection of this episode. She was mildly confused following. No recent illness. MD complaint: seizure Onset (ago): hour(s) Description of Episode: loss of consciousness and tonic-clonic movement Duration of episode: 45 -: minutes(s) Witnessed: Yes - by Bystander Trauma: No Seizure History: Yes Place: Home Possible Precipitating Event: none Associated symptoms: Reports confusion; Deny chest pain, cough, diaphoresis, fever(s), anorexia, malaise, rash, short of breath or syncope Treatments prior to arrival: benzodiazepines Review of Systems Const: Denies: fever(s), malaise or diaphoresis ENMT: Denies: throat pain Card: Denies: chest pain or syncope GI: Reports: nausea; Denies: abdominal pain or vomiting Skin/Breast: Denies: rash Neuro: Reports: headache(s) and confusion PFSH ED PFSH: Medical History delivery delivered x 3 H/O cancer of uterus H/O polycystic ovarian syndrome Surgical History H/O laparoscopy H/O skin graft on left lower leg History of colonoscopy (~06/2020) History of esophagogastroduodenoscopy (EGD) (~06/2020) History of hysterectomy for cancer still has ovaries Hx of cholecystectomy Hx of tubal ligation S/P tonsillectomy and adenoidectomy Family History Mother Anesthesia complication Father Hypertension Grandfather Cancer colon cancer, melanoma Other Diabetes Denies family history of CAD (coronary artery disease) Bleeding disorder Social History Second hand smoke exposure: Yes Alcohol intake: never Lives independently: Yes Household members: spouse Marital status: Current occupational status: employed 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 History of recent travel: No Current gender identity: Female Physical Exam Const: GENERAL APPEARANCE: cooperative and frail appearing (mildly) HENMT: COMMON NORMALS: normocephalic and Normal external nose present HEAD & SCALP: normocephalic FACE & SINUS: normal facial exam NOSE: Normal external nose present MOUTH: tongue normal THROAT: posterior oropharynx normal Eye: COMMON NORMALS: Equal, round and reactive pupils present and EOMs intact bilaterally PUPIL: Yes Equal, round and reactive pupils present Chest: COMMONS NORMALS: normal inspection of the chest Resp: COMMON NORMALS: normal respiratory effort, No use of accessory muscles and clear to auscultation bilaterally AUSCULTATION: clear to auscultation bilaterally Cardio: COMMON NORMALS: regular rate and regular rhythm RATE: regular rate RHYTHM: regular rhythm GI: COMMON NORMALS: Normal to inspection, nondistended, normoactive bowel sounds present and Soft to palpation PALPATION: Yes Soft to palpation Neuro: ADAL COMA SCALE: document GCS findings [place] coma scale eye opening: Spontaneous [place] coma scale verbal response: Orientated Adal coma scale motor response: Obey commands Adal coma scale total score: 15 COMMON NORMALS: CN's II-XII intact bilaterally and moves all extremities MOTOR EXAM: Pronator motor function not present Psych: ATTITUDE: Yes calm Course Vital Signs: Vital signs: Vital Signs Temperature 98.0 F 08/18/21 00:55 Pulse Rate 92 08/18/21 00:55 Respiratory Rate 16 08/18/21 00:55 Blood Pressure 119/74 08/18/21 00:55 Pulse Oximetry 98 08/18/21 00:55 MDM - Seizure MDM Narrative Medical decision making narrative: EKG is normal. Chest x-ray is normal. Head CT is normal. Laboratory is benign. This is at least her second seizure. She will be loaded with Keppra. We will send her out on Keppra to follow-up with neurology. She is back to baseline at this point, except for being sleepy from Ativan given by EMS. Urine drug screen is positive for marijuana, which could be a culprit. Lab Data Result diagrams: 08/18/21 00:57 08/18/21 00:57 Labs: Radiology Impressions Chest X-Ray 08/18/21 01:04 IMPRESSION: No acute findings. Head CT 08/18/21 01:04 IMPRESSION: No acute intracranial abnormality. Laboratory Results WBC 10.0 10^3/uL (4.0-10.0) 08/18/21 00:57 RBC 3.87 10^6/uL (4.1-5.3) L 08/18/21 00:57 Hgb 12.2 g/dL (11.5-15.3) 08/18/21 00:57 Hct 36.0 % (37.0-47.0) L 08/18/21 00:57 MCV 93.0 fl (81-99) 08/18/21 00:57 MCH 31.5 pg (28.0-34.0) 08/18/21 00:57 MCHC 33.9 g/dL (30.0-36.0) 08/18/21 00:57 RDW 12.1 % (12.1-15.1) 08/18/21 00:57 Plt Count 255 10^3/cmm (130-400) 08/18/21 00:57 MPV 9.8 fL (7.4-10.4) 08/18/21 00:57 Neut % (Auto) 64.9 % 08/18/21 00:57 Lymph % (Auto) 30.1 % 08/18/21 00:57 [place] % (Auto) 4.6 % 08/18/21 00:57 Eos % (Auto) 0.0 % 08/18/21 00:57 Baso % (Auto) 0.2 % 08/18/21 00:57 Neut # (Auto) 6.46 10^3/uL (1.8-7.7) 08/18/21 00:57 Lymph # (Auto) 3.0 10^3/uL (0.8-4.8) 08/18/21 00:57 [place] # (Auto) 0.5 10^3/uL (0.2-0.9) 08/18/21 00:57 Eos # (Auto) 0.0 10^3/uL (0.0-0.8) 08/18/21 00:57 Baso # (Auto) 0.0 10^3/uL (0.0-0.1) 08/18/21 00:57 Nucleated RBC % (auto) 0 % 08/18/21 00:57 Nucleated RBCs # 0.0 /100WBC 08/18/21 00:57 Sodium 137 mmol/L (136-145) 08/18/21 00:57 Potassium 4.2 mmol/L (3.5-5.1) 08/18/21 00:57 Chloride 105 mmol/L (98-107) 08/18/21 00:57 Carbon Dioxide 25 mmol/L (22-29) 08/18/21 00:57 Anion Gap 11.2 (5-19) 08/18/21 00:57 BUN 9 mg/dL (6-20) 08/18/21 00:57 Creatinine 0.7 mg/dL (0.5-0.9) 08/18/21 00:57 GFR Calculation 97.0 mL/min (90-130) 08/18/21 00:57 Glucose 96 mg/dL (65-115) 08/18/21 00:57 Calculated Osmolality 283 mOsm/kg (285-295) L 08/18/21 00:57 Calcium 8.1 mg/dL (8.5-10.5) L 08/18/21 00:57 Phosphorus 2.2 mg/dL (2.5-4.5) L 08/18/21 00:57 Magnesium 1.8 mg/dL (1.7-2.3) 08/18/21 00:57 Total Bilirubin 0.2 mg/dL (0.15-1.2) 08/18/21 00:57 AST 12 U/L (0-32) 08/18/21 00:57 ALT 15 U/L (0-33) 08/18/21 00:57 Alkaline Phosphatase 56 IU/L (35-105) 08/18/21 00:57 Creatine Kinase 94 U/L (26-192) 08/18/21 00:57 Total Protein 5.9 g/dL (6.6-8.7) L 08/18/21 00:57 Albumin 3.9 g/dL (3.5-5.2) 08/18/21 00:57 Globulin 2.0 g/dL (1.3-4.6) 08/18/21 00:57 HCG, Qual Negative (Negative) 08/18/21 00:57 Urine Color Yellow (Yellow) 08/18/21 03:38 Urine Appearance Clear (CLEAR) 08/18/21 03:38 Urine pH 7 (5-7) 08/18/21 03:38 Ur Specific [place] 1.005 (1.005-1.030) 08/18/21 03:38 Urine Protein Neg (Negative) 08/18/21 03:38 Urine Glucose (UA) Norm (Normal) 08/18/21 03:38 Urine Ketones Negative (Negative) 08/18/21 03:38 Urine Blood Neg (Negative) 08/18/21 03:38 Urine Nitrate Negative (Negative) 08/18/21 03:38 Urine Bilirubin Neg (Negative) 08/18/21 03:38 Urine Urobilinogen Norm mg/dL (Negative) 08/18/21 03:38 Ur Leukocyte Esterase Negative (Negative) 08/18/21 03:38 Urine Opiates Screen Negative ng/mL (Negative) 08/18/21 03:38 Ur Barbiturates Screen Negative ng/mL (Negative) 08/18/21 03:38 Ur Phencyclidine Scrn Negative ng/mL (Negative) 08/18/21 03:38 Ur Amphetamines Screen Negative ng/mL (Negative) 08/18/21 03:38 U Benzodiazepines Scrn Positive ng/mL (Negative) H 08/18/21 03:38 Urine Cocaine Screen Negative ng/mL (Negative) 08/18/21 03:38 U Marijuana (THC) Screen Positive ng/mL (Negative) H 08/18/21 03:38 Ethyl Alcohol < 10 mg/dL (0-10) 08/18/21 00:57 Discharge Plan Discharge Patient Disposition: Home Clinical Impression: Generalized seizure Condition: Stable Prescriptions: New Keppra 500 mg tablet 500 mg PO BID Qty: 60 0RF No Action pantoprazole [Protonix] 40 mg tablet,delayed release (DR/EC) 40 mg PO DAILY Qty: 30 1RF ondansetron 4 mg tablet,disintegrating 4 mg PO Q8H PRN (Reason: nausea and vomiting) Qty: 30 1RF acetaminophen [Tylenol] 325 mg Tablet 325 - 650 mg PO Q6H PRN (Reason: PAIN/FEVER) 0RF Discharge Orders: Discharge ED (Routine); Ordered 08/18/21 Ordered By: Elan Kendall Referrals: Yue Galindo FNP [Primary Care Provider] - Patient Instructions: Recurrent Seizures in Adults (ED) Activity Restrictions/Additional Instructions: Medication as directed. Do not drive a car until cleared by neurology. Call your neurologist on Thursday for an outpatient follow-up. Further testing will likely be needed. Return for repeated episodes of seizure, mental status changes, syncope or passing out, any other concerning symptoms. Coding Level of Care Code ED Manager [facility] Exam Comprehensive
[2021-08-18 03:58] LABS: Amphetamines Screen Urine Negative (Negative); Barbiturates Screen Urine Negative (Negative); Benzodiazepines Screen Urine Positive (Negative); Cocaine Screen Urine Negative (Negative); Opiate Screen Urine Negative (Negative); PCP Screen Urine Negative (Negative); THC Screen Urine Positive (Negative)
== END 2021-08-18 04:42 | disposition home or self-care (01) ==
PROVIDERS: Emergency Provider Emergency Medicine; PCP Nurse Practitioner Family
DX: G40.89 Other seizures (principal); Z85.42 Personal history of malignant neoplasm of other parts of uterus; Z77.22 Contact with and (suspected) exposure to environmental tobacco smoke (acute) (chronic)
CPT/HCPCS: 70450; 71045; 80053; 80306; 80307; 81003; 82550; 83735; 84100; 84703; 85025; 93005; 96361; 96374; 99284; J1953; J7030

== ENCOUNTER 2021-08-23 18:35 | Emergency (ER) | payer BC, MEDICAID, SELFPAY ==
[2021-08-23 18:41] VITALS: BP 151/56; PULSE 112; RESP 20; TEMP 36.7; O2SAT 98
--- NOTE | 2021-08-23 18:45 | CTR_ITS ---
PROCEDURE INFORMATION: Exam: CT Cervical Spine Without Contrast Exam date and time: 08/23/2021 7:25 PM Age: 31 years old Clinical indication: Patient HX: C/O neck pain after multiple seizures today; Additional info: Seizure TECHNIQUE: Imaging protocol: Computed tomography images of the cervical spine without contrast. Radiation optimization: All CT scans at this facility use at least one of these dose optimization techniques: automated exposure control; mA and/or kV adjustment per patient size (includes targeted exams where dose is matched to clinical indication); or iterative reconstruction. COMPARISON: CT head wo con* [id number] 08/23/2021 7:22 PM RADIATION DOSE METRICS: Total DLP (mGy-cm): 323.37 FINDINGS: Bones/joints: No acute fracture. Normal alignment. Discs/Spinal canal/Neural foramina: No significant disc protrusion. No severe spinal canal stenosis. No significant neural foraminal narrowing. Lungs: Lung apices are normal. Soft tissues: Unremarkable. CT/CT cervical spin wo con* [id number] IMPRESSION: No acute findings.
--- NOTE | 2021-08-23 18:45 | CTR_ITS ---
PROCEDURE INFORMATION: Exam: CT Head Without Contrast Exam date and time: 08/23/2021 7:22 PM Age: 31 years old Clinical indication: Condition or disease; Convulsions or seizures; Unspecified; Patient HX: C/O OSUNA after multiple seizures today; Additional info: Seizure TECHNIQUE: Imaging protocol: Computed tomography of the head without contrast. Radiation optimization: All CT scans at this facility use at least one of these dose optimization techniques: automated exposure control; mA and/or kV adjustment per patient size (includes targeted exams where dose is matched to clinical indication); or iterative reconstruction. COMPARISON: CT head wo con* [id number] 08/18/2021 1:21 AM RADIATION DOSE METRICS: Total DLP (mGy-cm): 822.01 FINDINGS: Brain: Normal. No hemorrhage. Unremarkable white matter. No mass effect. Cerebral ventricles: No ventriculomegaly. Paranasal sinuses: Visualized sinuses are unremarkable. No fluid levels. Mastoid air cells: Visualized mastoid air cells are well aerated. Bones/joints: Unremarkable. No acute fracture. Soft tissues: Unremarkable. CT/CT head wo con* [id number] IMPRESSION: No acute intracranial abnormality.
--- NOTE | 2021-08-23 18:47 | ED_ITS ---
HPI - Seizure General: Chief Complaint: Seizure Stated Complaint: SEIZURE/ MIGRAINE Time Seen by Provider: 08/23/21 18:37 History of Present Illness: HPI Narrative: Patient is a 31-year-old female comes to the ED with seizure and headache. Patient had multiple seizures today and EMS was called out and she was brought here to the ED. Patient's complaint of having a really bad headache and that everything is too loud right now. Patient has a blanket over her face and covering her eyes and giving me minimal responses with my questions. She is a poor historian currently. I talked with her significant other who is in the ED room with her. He told me that patient was complaining about a really severe headache. Patient has a history of migraines and says that she she had similar incident about 5 days ago and was seen here in the ED on August 18. He says her episode about 5 days ago was a lot worse and she was having more seizure-like convulsions at that time. Did not have any bladder or bowel incontinence during severe headache and seizure like she did 5 days ago. Today she she was just complaining of very severe headache and complaining that loud noises and bright lights were making headache worse. She was referred to neuro in [place] and has done an EEG test this week and patient is scheduled to see a neurologist in [place] on August 30. Patient does have a family history of aneurysms. Seizure History: Yes Associated symptoms: Deny chest pain, chills or fever(s) Review of Systems Const: Denies: fever(s), chills or fatigue Eyes: Denies: change in vision or eye discomfort ENMT: Denies: throat pain, odynophagia, nasal discharge or nasal congestion Card: Denies: chest pain, palpitations, edema, swelling of feet/ankles, dyspnea on exertion or orthopnea Resp: Denies: dyspnea, productive cough or non-productive cough GI: Denies: abdominal pain, nausea, vomiting, diarrhea, constipation or hematochezia : Denies: flank pain, dysuria or hematuria Musc: Denies: neck pain, back pain or extremity swelling Skin/Breast: Denies: rash or new lesions Neuro: Reports: headache(s); Denies: numbness in extremities or weakness in extremities [facility] ED PFSH: Medical History delivery delivered x 3 FHx: brain aneurysm H/O cancer of uterus H/O polycystic ovarian syndrome Surgical History H/O laparoscopy H/O skin graft on left lower leg History of colonoscopy (~06/2020) History of esophagogastroduodenoscopy (EGD) (~06/2020) History of hysterectomy for cancer still has ovaries Hx of cholecystectomy Hx of tubal ligation S/P tonsillectomy and adenoidectomy Family History Mother Anesthesia complication Father Hypertension Grandfather Cancer colon cancer, melanoma Other Diabetes Denies family history of CAD (coronary artery disease) Bleeding disorder Social History Second hand smoke exposure: Yes Alcohol intake: never Lives independently: Yes Household members: spouse Marital status: Current occupational status: employed 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 History of recent travel: No Current gender identity: Female Physical Exam Const: COMMON NORMALS: patient oriented x3 and alert GENERAL APPEARANCE: cooperative HENMT: COMMON NORMALS: normocephalic HEAD & SCALP: normocephalic MOUTH: Normal oral and palatal mucosa present THROAT: posterior oropharynx normal and uvula midline Eye: COMMON NORMALS: Equal, round and reactive pupils present and EOMs intact bilaterally PUPIL: Yes Equal, round and reactive pupils present Neck/C-Spine: COMMON NORMALS: supple GENERAL: Yes normal visual inspection Resp: COMMON NORMALS: normal respiratory effort, No retractions, No use of accessory muscles and clear to auscultation bilaterally AUSCULTATION: clear to auscultation bilaterally Cardio: COMMON NORMALS: regular rate, regular rhythm, S1 normal heart sound present, S2 normal heart sound present, No gallops present (Cardio), No clicks present (Cardio), No murmurs present (Cardio) and Peripheral pulses 2+ throughout RATE: regular rate RHYTHM: regular rhythm HEART SOUNDS: S1 normal heart sound present and S2 normal heart sound present PERIPHERAL PULSES: Peripheral pulses 2+ throughout GI: COMMON NORMALS: Normal to inspection, nondistended, normoactive bowel sounds present, Soft to palpation, non-tender and no masses PALPATION: Yes Soft to palpation : COMMON NORMALS: Yes no CVA tenderness BLADDER/KIDNEY EXAM: Yes no CVA tenderness Back/Pelvis: COMMON NORMALS: no CVA tenderness Extremity: COMMON NORMALS: normal to inspection Neuro: COMMON NORMALS: patient oriented x3, CN's II-XII intact bilaterally, moves all extremities, no focal motor deficits and no sensory deficits noted SENSORIUM/ORIENTATION: Yes alert SPEECH: speech normal Skin: GENERAL SKIN EXAM: dry skin Course Reevaluation(s): Reevaluation #1: After patient was given some IV meds her headache improved and she was comfortable and able to respond to all my questions. She appeared in no acute distress or pain. She said her headache had improved. When she came in she said her headache was probably rated a 10 out of 10 but now it is down to a more manageable level. Vital Signs: Vital signs: Vital Signs Temperature 98.0 F 08/23/21 18:41 Pulse Rate 70 08/23/21 22:15 Respiratory Rate 20 H 08/23/21 22:15 Blood Pressure 134/74 08/23/21 22:15 Pulse Oximetry 99 08/23/21 22:15 MDM - Seizure MDM Narrative Medical decision making narrative: Patient is a 31-year-old female comes to the ED with severe headache. She has a past medical history of migraines and also started developing seizures as well. She was seen here in the ED back on August 18 for migraines and seizure-like activity. She was started on 500 mg of Keppra twice daily at discharge from the ED on August 18. She was referred to neuro in [place] and has done an EEG test this week and patient is scheduled to see a neurologist in [place] on August 30. Tonight she started developing a very severe migraine. Loud noises and lights made it worse. Patient says she has a family history of brain aneurysms. Vitals are stable. After patient was given some migraine meds her symptoms improved she was more comfortable I was able to do a full exam on her and it was benign. CBC, CMP and CK were all unremarkable. CT of head and cervical spine showed no acute findings. CTA of head and neck was done as well since this is her second visit in the last week for severe headache and given her family history of aneurysms. CT of head and neck showed no acute findings. Patient was given IV Toradol, Reglan and Ativan while here in the ED. she was still complained about a headache so I gave her some sumatriptan and that improved her headache significantly. She had no episodes of any seizures while here in the ED. Patient diagnosed with migraine. She was stable for discharge home and told to follow-up with her neurologist at next scheduled appointment on August 30. She was given strict return to ED precautions. Patient understood and agreed with plan. Lab Data Result diagrams: 08/23/21 19:50 08/23/21 19:50 Labs: Radiology Impressions Cervical Spine CT 08/23/21 18:45 IMPRESSION: No acute findings. Head CT 08/23/21 18:45 IMPRESSION: No acute intracranial abnormality. Head/Neck CTA 08/23/21 20:26 IMPRESSION: No large vessel stenosis or occlusion. IMPRESSION: No stenosis or occlusion. REFERENCES: NASCET CRITERIA. The degree of internal carotid artery stenosis is based on NASCET criteria. Normal is no stenosis. Mild is less than 50% stenosis. Moderate is 50-69% stenosis. Severe is 70% to 99% stenosis. Total occlusion is no detectable patent lumen. Laboratory Results WBC 9.6 10^3/uL (4.0-10.0) 08/23/21 19:50 RBC 3.92 10^6/uL (4.1-5.3) L 08/23/21 19:50 Hgb 12.2 g/dL (11.5-15.3) 08/23/21 19:50 Hct 36.8 % (37.0-47.0) L 08/23/21 19:50 MCV 93.9 fl (81-99) 08/23/21 19:50 MCH 31.1 pg (28.0-34.0) 08/23/21 19:50 MCHC 33.2 g/dL (30.0-36.0) 08/23/21 19:50 RDW 12.1 % (12.1-15.1) 08/23/21 19:50 Plt Count 269 10^3/cmm (130-400) 08/23/21 19:50 MPV 10.2 fL (7.4-10.4) 08/23/21 19:50 Neut % (Auto) 73.7 % 08/23/21 19:50 Lymph % (Auto) 20.8 % 08/23/21 19:50 [place] % (Auto) 4.9 % 08/23/21 19:50 Eos % (Auto) 0.0 % 08/23/21 19:50 Baso % (Auto) 0.3 % 08/23/21 19:50 Neut # (Auto) 7.10 10^3/uL (1.8-7.7) 08/23/21 19:50 Lymph # (Auto) 2.0 10^3/uL (0.8-4.8) 08/23/21 19:50 [place] # (Auto) 0.5 10^3/uL (0.2-0.9) 08/23/21 19:50 Eos # (Auto) 0.0 10^3/uL (0.0-0.8) 08/23/21 19:50 Baso # (Auto) 0.0 10^3/uL (0.0-0.1) 08/23/21 19:50 Nucleated RBC % (auto) 0 % 08/23/21 19:50 Nucleated RBCs # 0.0 /100WBC 08/23/21 19:50 Sodium 137 mmol/L (136-145) 08/23/21 19:50 Potassium 4.1 mmol/L (3.5-5.1) 08/23/21 19:50 Chloride 102 mmol/L (98-107) 08/23/21 19:50 Carbon Dioxide 27 mmol/L (22-29) 08/23/21 19:50 Anion Gap 12.1 (5-19) 08/23/21 19:50 BUN 10 mg/dL (6-20) 08/23/21 19:50 Creatinine 0.8 mg/dL (0.5-0.9) 08/23/21 19:50 GFR Calculation 83.1 mL/min (90-130) L 08/23/21 19:50 Glucose 98 mg/dL (65-115) 08/23/21 19:50 Calculated Osmolality 283 mOsm/kg (285-295) L 08/23/21 19:50 Calcium 9.0 mg/dL (8.5-10.5) 08/23/21 19:50 Total Bilirubin 0.2 mg/dL (0.15-1.2) 08/23/21 19:50 AST 12 U/L (0-32) 08/23/21 19:50 ALT 13 U/L (0-33) 08/23/21 19:50 Alkaline Phosphatase 58 IU/L (35-105) 08/23/21 19:50 Creatine Kinase 67 U/L (26-192) 08/23/21 19:50 Total Protein 6.2 g/dL (6.6-8.7) L 08/23/21 19:50 Albumin 4.2 g/dL (3.5-5.2) 08/23/21 19:50 Globulin 2.0 g/dL (1.3-4.6) 08/23/21 19:50 HCG, Qual Negative (Negative) 08/23/21 19:50 Discharge Plan Discharge Patient Disposition: Home Clinical Impression: Migraine Qualifiers: Migraine type: without aura Status migrainosus presence: without status migrainosus Intractability: not intractable Qualified Code(s): G43.009 - Migraine without aura, not intractable, without status migrainosus Condition: Stable Prescriptions: No Action pantoprazole [Protonix] 40 mg tablet,delayed release (DR/EC) 40 mg PO DAILY Qty: 30 1RF ondansetron 4 mg tablet,disintegrating 4 mg PO Q8H PRN (Reason: nausea and vomiting) Qty: 30 1RF Keppra 500 mg tablet 500 mg PO BID Qty: 60 0RF acetaminophen [Tylenol] 325 mg Tablet 325 - 650 mg PO Q6H PRN (Reason: PAIN/FEVER) 0RF Discharge Orders: Discharge ED (Routine); Ordered 08/23/21 Ordered By: Alfonso Small Referrals: Yue Galindo FNP [Primary Care Provider] - Discharge Diet: Regular Discharge Activity: Increase activity as tolerated Patient Instructions: Headache - Migraine (Adult) Activity Restrictions/Additional Instructions: Follow-up with neurologist follow-up with neurologist at your next scheduled appointment in little over a week. Continue taking previously prescribed medications. Return to the ER or your medical provider if condition worsens. Please read and understand discharge instructions. Thank you for choosing [facility] for your healthcare needs today. Please realize this is an emergency room and that we are providing you with a medical screening exam and this may not be complete and all inclusive of all the testing and or work up that you may need to determine your ailment or severity of your illness. It is very important that you follow up as instructed or that you return to the Emergency Department should you have concerns or if your condition changes or worsens in any way. Coding Level of Care Code ED Filling Room Operator for Dexter Guzman Exam Detailed
[2021-08-23] MEDS: sodium chloride 0.9% 500 ML 999 ML IV (19:47)
[2021-08-23] MEDS: LORazepam 2 mg/mL INJ 1 mL 1 MG IVP (19:49)
[2021-08-23] MEDS: ketorolac 30 mg/mL INJ IVP (19:51)
[2021-08-23] MEDS: metoclopramide 5 mg/mL SDV 2 mL 10 MG IVP (19:54)
[2021-08-23 20:05] LABS: Basophils % 0.3 %; Hematocrit 36.8 % (37.0-47.0); Hemoglobin 12.2 g/dL (11.5-15.3); Lymphocytes % 20.8 %; Mean Corpuscular HGB Conc 33.2 g/dL (30.0-36.0); Mean Corpuscular Hemoglobin 31.1 pg (28.0-34.0); Mean Corpuscular Volume 93.9 fl (81-99); Mean Platelet Volume 10.2 fL (7.4-10.4); Monocytes # 0.5 10^3/uL (0.2-0.9); Monocytes % 4.9 %; Neutrophils % 73.7 %; Nucleated Red Blood Cells % 0 %; Platelet Count 269 10^3/cmm (130-400); Red Blood Count 3.92 10^6/uL (4.1-5.3); Red Cell Distribution Width 12.1 % (12.1-15.1); White Blood Count 9.6 10^3/uL (4.0-10.0)
[2021-08-23 20:09] VITALS: BP 139/74; PULSE 98; RESP 20; O2SAT 98
[2021-08-23 20:21] LABS: HCG, Serum Qual Negative (Negative)
--- NOTE | 2021-08-23 20:26 | CTR_ITS ---
PROCEDURE INFORMATION: Exam: CT Angiography Head With Contrast, Arteriography Exam date and time: 08/23/2021 9:02 PM Age: 31 years old Clinical indication: Pain; Headache; Patient HX: C/O migraine with seizure activity. Family history of cerebral aneurysm. ; Additional info: Severe headache and seizures TECHNIQUE: Imaging protocol: Computed tomography angiography of the head with contrast. Exam focused on the arteries. 3D rendering (Not supervised by radiologist): MIP and/or 3D reconstructed images were created by the technologist. Radiation optimization: All CT scans at this facility use at least one of these dose optimization techniques: automated exposure control; mA and/or kV adjustment per patient size (includes targeted exams where dose is matched to clinical indication); or iterative reconstruction. Contrast material: OMNI 350; Contrast volume: 95 ml; Contrast route: INTRAVENOUS (IV); COMPARISON: CT head wo con* [id number] 08/23/2021 7:22 PM RADIATION DOSE METRICS: Total DLP (mGy-cm): 1308.5 FINDINGS: ANTERIOR CIRCULATION: Right internal carotid artery: Unremarkable. Intracranial segment is patent with no significant stenosis. No aneurysm. Right middle cerebral artery: Unremarkable. No occlusion or significant stenosis. No aneurysm. Right anterior cerebral artery: Unremarkable. No occlusion or significant stenosis. No aneurysm. Left internal carotid artery: Unremarkable. Intracranial segment is patent with no significant stenosis. No aneurysm. Left middle cerebral artery: Unremarkable. No occlusion or significant stenosis. No aneurysm. Left anterior cerebral artery: Unremarkable. No occlusion or significant stenosis. No aneurysm. POSTERIOR CIRCULATION: Right vertebral artery: Unremarkable. No occlusion or significant stenosis. No aneurysm. Left vertebral artery: Unremarkable. No occlusion or significant stenosis. No aneurysm. Basilar artery: Unremarkable. No occlusion or significant stenosis. No aneurysm. Right posterior cerebral artery: Unremarkable. No occlusion or significant stenosis. No aneurysm. Left posterior cerebral artery: Unremarkable. No occlusion or significant stenosis. No aneurysm. PROCEDURE INFORMATION: Exam: CT Angiography Neck With Contrast Exam date and time: 08/23/2021 9:02 PM Age: 31 years old Clinical indication: Pain; Headache; Patient HX: C/O migraine with seizure activity. Family history of cerebral aneurysm. ; Additional info: Severe headache and seizures TECHNIQUE: Imaging protocol: Computed tomography angiography of the neck with contrast. 3D rendering (Not supervised by radiologist): MIP and/or 3D reconstructed images were created by the technologist. Radiation optimization: All CT scans at this facility use at least one of these dose optimization techniques: automated exposure control; mA and/or kV adjustment per patient size (includes targeted exams where dose is matched to clinical indication); or iterative reconstruction. Contrast material: OMNI 350; Contrast volume: 95 ml; Contrast route: INTRAVENOUS (IV); COMPARISON: CT head wo adilson* [id number] 08/23/2021 7:22 PM RADIATION DOSE METRICS: Total DLP (mGy-cm): 1308.5 FINDINGS: Right common carotid artery: No stenosis. No dissection or occlusion. Right internal carotid artery: No stenosis of the extracranial segment. No dissection or occlusion. Right external carotid artery: No occlusion or stenosis of the origin. Left common carotid artery: No stenosis. No dissection or occlusion. Left internal carotid artery: No stenosis of the extracranial segment. No dissection or occlusion. Left external carotid artery: No occlusion or stenosis of the origin. Right vertebral artery: No stenosis. No dissection or occlusion. Left vertebral artery: No stenosis. No dissection or occlusion. Soft tissues: Normal. No significant soft tissue swelling. Bones/joints: No acute fracture. CT/CT angio headneck* [id number] IMPRESSION: No large vessel stenosis or occlusion. IMPRESSION: No stenosis or occlusion. REFERENCES: NASCET CRITERIA. The degree of internal carotid artery stenosis is based on NASCET criteria. Normal is no stenosis. Mild is less than 50% stenosis. Moderate is 50-69% stenosis. Severe is 70% to 99% stenosis. Total occlusion is no detectable patent lumen.
[2021-08-23 20:27] LABS: Alanine Aminotransferase 13 U/L (0-33); Albumin Level 4.2 g/dL (3.5-5.2); Alkaline Phosphatase 58 IU/L (35-105); Anion Gap 12.1 (5-19); Aspartate Amino Transferase 12 U/L (0-32); Blood Urea Nitrogen 10 mg/dL (6-20); Carbon Dioxide 27 mmol/L (22-29); Chloride 102 mmol/L (98-107); Creatine Phosphokinase 67 U/L (26-192); Glomerular Filtration Rate 83.1 mL/min (90-130); Glucose 98 mg/dL (65-115); Osmolality Calculated 283 mOsm/kg (285-295); Potassium 4.1 mmol/L (3.5-5.1); Sodium 137 mmol/L (136-145); Total Bilirubin 0.2 mg/dL (0.15-1.2); Total Protein 6.2 g/dL (6.6-8.7)
[2021-08-23] MEDS: iohexol 350 mg/mL 100 mL Btl IV (20:54)
[2021-08-23] MEDS: SUMAtriptan 6 mg/0.5 mL SDV SUBCUT (21:17)
[2021-08-23 21:20] VITALS: BP 102/58; PULSE 68; RESP 16; O2SAT 100
[2021-08-23 21:30] VITALS: BP 124/66; PULSE 88; RESP 16; O2SAT 98
[2021-08-23 22:15] VITALS: BP 134/74; PULSE 70; RESP 20; O2SAT 99
== END 2021-08-23 22:15 | disposition home or self-care (01) ==
PROVIDERS: Emergency Provider Physician Assistant; PCP Nurse Practitioner Family
DX: G43.009 Migraine without aura, not intractable, without status migrainosus (principal); Z85.42 Personal history of malignant neoplasm of other parts of uterus; Z77.22 Contact with and (suspected) exposure to environmental tobacco smoke (acute) (chronic)
CPT/HCPCS: 70450; 70496; 70498; 72125; 80053; 82550; 84703; 85025; 96372; 96374; 96375; 99284; J1885; J2060; J2765; J3030; J7040; Q9967

== ENCOUNTER → 2021-08-28 09:20 | Outpatient (BNVA) | payer BC, MEDICAID, SELFPAY | PROVIDERS: PCP Nurse Practitioner Family; Referring Provider Nurse Practitioner Family; Visit Provider Nurse Practitioner Women's Health | DX: R10.2 Pelvic and perineal pain (principal); N83.202 Unspecified ovarian cyst, left side | CPT/HCPCS: 87491; 87591; 87661 ==

== ENCOUNTER 2021-09-16 13:22 | Emergency (ER) | payer BC, MEDICAID, SELFPAY ==
--- NOTE | 2021-09-16 13:25 | ECG_ITS ---
[facility] Test Date: 2021-09-16 Pat Name: Christel Altamirano Department: Room: Gender: Female Ward Attendant: : 1990 Requested By: Arely Braga Order Number: [id number] Radha MD: Malinda Daniel M.D. Measurements Intervals [place] Rate: 67 P: 66 OR: 150 QRS: 84 QRSD: 97 T: 71 QT: 416 QTc: 441 Interpretive Statements SINUS RHYTHM POSSIBLE RIGHT VENTRICULAR CONDUCTION DELAY [RSR (QR) IN V1/V2] Compared to ECG 08/18/2021 01:10:01 No significant changes Electronically Signed On 09-16-2021 22:59:36 CDT by Malinda Daniel M.D. [email or web address]
[2021-09-16 13:43] VITALS: BP 126/77; PULSE 84; RESP 17; TEMP 36.8; O2SAT 100; BMI 20.1
[2021-09-16 13:43] LABS: Basophils # 0.1 10^3/uL (0.0-0.1); Basophils % 0.5 %; Hematocrit 40.3 % (37.0-47.0); Hemoglobin 13.3 g/dL (11.5-15.3); Lymphocytes # 4.6 10^3/uL (0.8-4.8); Lymphocytes % 46.7 %; Mean Corpuscular Hemoglobin 30.9 pg (28.0-34.0); Mean Corpuscular Volume 93.5 fl (81-99); Mean Platelet Volume 10.4 fL (7.4-10.4); Monocytes # 0.4 10^3/uL (0.2-0.9); Monocytes % 4.4 %; Neutrophils # 4.73 10^3/uL (1.8-7.7); Neutrophils % 48.2 %; Nucleated Red Blood Cells % 0 %; Platelet Count 291 10^3/cmm (130-400); Red Blood Count 4.31 10^6/uL (4.1-5.3); Red Cell Distribution Width 11.9 % (12.1-15.1); White Blood Count 9.8 10^3/uL (4.0-10.0)
[2021-09-16] MEDS: sodium chloride 0.9% 1,000 ML 999 ML IV (13:53)
--- NOTE | 2021-09-16 13:55 | W.ED.GENADLT ---
HPI - General Adult General: Chief complaint: Seizure Stated complaint: seizure Time Seen by Provider: 09/16/21 13:25 History of Present Illness: Patient is a 31-year-old female with history of epilepsy currently followed by neurologist in [place] presents the emergency room for concerns of breakthrough seizure. Patient's , patient is currently decreasing on her dose of Keppra. She was previously on Keppra 500 mg twice daily now only giving 500 mg of Keppra daily. Patient is transitioning over to Topamax. Earlier today, husbandw was driving when he noticed that his had general clonic shaking. Patient was confused afterwards. In addition, shortly after presenting to the emergency room triage, patient also had another episode of shaking lasting for few seconds. On arrival, patient appears to be confused and postictal. Earlier today, patient was noted to be confused and leaning against the refrigerator. does not recall if patient had any fall. denies of the seizure seizures have been without any improvement to baseline. Onset: 1 hr ago Duration:twice x 1 minutes Location:home Severity:moderate Associated symptoms: Deny chest pain, dyspnea, nausea, rash, palpitations or vomiting Review of Systems Const: Denies: fever(s) or chills Eyes: Denies: change in vision ENMT: Denies: mouth pain Card: Denies: chest pain or palpitations Resp: Denies: dyspnea or non-productive cough GI: Denies: abdominal pain, nausea, vomiting or diarrhea : Denies: dysuria Musc: Denies: extremity pain Skin/Breast: Denies: rash or new lesions Neuro: Reports: other (+seizures); Denies: weakness in extremities Psych: Reports: other (Normal mood) Jay/Lymph: Denies: easy bruising PFS ED PFSH: Medical History Anxiety and depression managed by PCP Endometriosis (~2018) reported diagnosis during u/s but confirmed during hysterectomy. No pertinent past medical history neghx: htn,dm,thyroid,dvt/pe PCP: Yue Galindo PCO (polycystic ovaries) PTSD (post-traumatic stress disorder) managed by PCP Seizure has neuro referral Surgical History H/O laparoscopy at 13 y/o for abdominal pain H/O skin graft Right lower leg History of section #1. 2009-- small pelvis and NRFHR #2. 2015-- Repeat #3. 2016-- Repeat with tubal ligation History of colonoscopy (~06/2020) History of esophagogastroduodenoscopy (EGD) (~06/2020) History of hysterectomy (~2017) ovaries spared; performed due to pain and precancer cells of the uterus [place] Hx of cholecystectomy Hx of tubal ligation (~2016) S/P tonsillectomy and adenoidectomy Family History Mother Diabetes Father Hypertension Grandfather Stroke Paternal Denies family history of Colon cancer Ovarian cancer Heart disease Hypercholesteremia Breast cancer Uterine cancer Thyroid disease Physical Exam HENMT: COMMON NORMALS: atraumatic HEAD & SCALP: atraumatic MOUTH: moist mucous membranes not abnormal Eye: COMMON NORMALS: EOMs intact bilaterally and conjunctivae normal CONJUNCTIVA: Yes conjunctivae normal Neck/C-Spine: COMMON NORMALS: full ROM and supple Resp: COMMON NORMALS: normal respiratory effort and clear to auscultation bilaterally AUSCULTATION: clear to auscultation bilaterally Cardio: COMMON NORMALS: regular rate RATE: regular rate GI: COMMON NORMALS: Soft to palpation and non-tender PALPATION: Yes Soft to palpation Extremity: COMMON NORMALS: full ROM Neuro: SENSORIUM/ORIENTATION: Yes somnolent Psych: OTHER: +Unable to assess due to underlying AMS Course Vital Signs: Vital signs: Vital Signs Temperature 98.2 F 09/16/21 13:43 Pulse Rate 64 09/16/21 18:09 Respiratory Rate 12 09/16/21 18:09 Blood Pressure 105/72 09/16/21 18:09 Pulse Oximetry 96 09/16/21 18:09 MDM - General Adult Medical Decision Making 31-year-old female with history of epilepsy on Keppra presenting to the emergency room after episodes of breakthrough seizures. states that patient is compliant with medicine. On exam, patient is somnolent and sleeping. Patient was watched in the emergency room for an hour now patient is nonverbal and back to baseline. Patient reports that she has been compliant with her medicine. No other focal complaints of pain of the headache. Dot not suspect acute intracanial pathologies. Patient received IVF, Tylenol, Keppra with improvement in headache. Patient has not had any seizures. Lab evaluation showed electrolytes within normal limit. Do not suspect acute brain injuries or intracranial processes I have instructed family to go back on the Keppra dose to 500 mg twice daily. Patient instructed follow-up with her neurologist in [place] for further evaluation of her symptoms. Patient is well-appearing, AAOX3, neuro intact at this time. I have given family strict instruction to ensure the patient does not swim, bathe, operate heavy machinery or do any dangerous activity on her own. Rx keppra 500mg BID x 14 days Disposition: Discharge. Patient counseled regarding diagnostic impression, treatment plan. Patient given ED strict return precautions to return for continuation, worsening, or development of new symptoms. Instructed to f/u w/ Neurology regarding symptoms today. Patient verbalized understanding. Lab Data : 09/16/21 13:26 09/16/21 13:26 Laboratory Results WBC 9.8 10^3/uL (4.0-10.0) 09/16/21 13:26 RBC 4.31 10^6/uL (4.1-5.3) 09/16/21 13:26 Hgb 13.3 g/dL (11.5-15.3) 09/16/21 13:26 Hct 40.3 % (37.0-47.0) 09/16/21 13:26 MCV 93.5 fl (81-99) 09/16/21 13:26 MCH 30.9 pg (28.0-34.0) 09/16/21 13:26 MCHC 33.0 g/dL (30.0-36.0) 09/16/21 13:26 RDW 11.9 % (12.1-15.1) L 09/16/21 13:26 Plt Count 291 10^3/cmm (130-400) 09/16/21 13:26 MPV 10.4 fL (7.4-10.4) 09/16/21 13:26 Neut % (Auto) 48.2 % 09/16/21 13:26 Lymph % (Auto) 46.7 % 09/16/21 13:26 [place] % (Auto) 4.4 % 09/16/21 13:26 Eos % (Auto) 0.0 % 09/16/21 13:26 Baso % (Auto) 0.5 % 09/16/21 13:26 Neut # (Auto) 4.73 10^3/uL (1.8-7.7) 09/16/21 13:26 Lymph # (Auto) 4.6 10^3/uL (0.8-4.8) 09/16/21 13:26 [place] # (Auto) 0.4 10^3/uL (0.2-0.9) 09/16/21 13:26 Eos # (Auto) 0.0 10^3/uL (0.0-0.8) 09/16/21 13:26 Baso # (Auto) 0.1 10^3/uL (0.0-0.1) 09/16/21 13:26 Nucleated RBC % (auto) 0 % 09/16/21 13: Nucleated RBCs # 0.0 /100WBC 09/16/21 13:26 Sodium 137 mmol/L (136-145) 09/16/21 13:26 Potassium 4.7 mmol/L (3.5-5.1) 09/16/21 13:26 Chloride 105 mmol/L (98-107) 09/16/21 13:26 Carbon Dioxide 19 mmol/L (22-29) L 09/16/21 13:26 Anion Gap 17.7 (5-19) 09/16/21 13:26 BUN 13 mg/dL (6-20) 09/16/21 13:26 Creatinine 0.8 mg/dL (0.5-0.9) 09/16/21 13:26 GFR Calculation 83.1 mL/min (90-130) L 09/16/21 13:26 Glucose 106 mg/dL (65-115) 09/16/21 13:26 Calculated Osmolality 285 mOsm/kg (285-295) 09/16/21 13:26 Calcium 9.6 mg/dL (8.5-10.5) 09/16/21 13:26 Total Bilirubin 0.3 mg/dL (0.15-1.2) 09/16/21 13:26 AST 12 U/L (0-32) 09/16/21 13:26 ALT 12 U/L (0-33) 09/16/21 13:26 Alkaline Phosphatase 81 IU/L (35-105) 09/16/21 13:26 Total Protein 7.1 g/dL (6.6-8.7) 09/16/21 13:26 Albumin 4.8 g/dL (3.5-5.2) 09/16/21 13:26 Globulin 2.3 g/dL (1.3-4.6) 09/16/21 13:26 Lipase 43 U/L (13-60) 09/16/21 13:26 HCG, Qual Negative (Negative) 09/16/21 13:26 Urine Color Straw (Yellow) 09/16/21 16:16 Urine Appearance Clear (CLEAR) 09/16/21 16:16 Urine pH 7 (5-7) 09/16/21 16:16 Ur Specific [place] 1.010 (1.005-1.030) 09/16/21 16:16 Urine Protein Neg (Negative) 09/16/21 16:16 Urine Glucose (UA) Norm (Normal) 09/16/21 16:16 Urine Ketones Negative (Negative) 09/16/21 16:16 Urine Blood Neg (Negative) 09/16/21 16:16 Urine Nitrate Negative (Negative) 09/16/21 16:16 Urine Bilirubin Neg (Negative) 09/16/21 16:16 Urine Urobilinogen Norm mg/dL (Negative) 09/16/21 16:16 Ur Leukocyte Esterase Negative (Negative) 09/16/21 16:16 Discharge Plan Discharge Patient Disposition: Home Clinical Impression: Seizure Condition: Stable Prescriptions: New Keppra 500 mg tablet 500 mg PO BID 14 Days Qty: 28 0RF Discontinued levetiracetam [Keppra] 500 mg tablet 500 mg PO BID Qty: 60 0RF No Action buspirone 10 mg tablet 10 mg PO BID 0RF dicyclomine 10 mg capsule 10 mg PO BID 0RF fluoxetine 20 mg capsule 60 mg PO DAILY 0RF pantoprazole [Protonix] 40 mg tablet,delayed release (DR/EC) 40 mg PO DAILY Qty: 30 1RF ondansetron 4 mg tablet,disintegrating 4 mg PO Q8H PRN (Reason: nausea and vomiting) Qty: 30 1RF albuterol sulfate 90 mcg/actuation Hfa Aerosol Inhaler 2 puff INHALATION Q6H PRN (Reason: Shortness Of Breath) 0RF Keppra 500 mg Tablet 500 mg PO BEDTIME 0RF hydroxyzine HCl 25 mg Tablet 50 mg PO BEDTIME PRN (Reason: unknown) 0RF topiramate [Topamax] 50 mg Tablet See Rx Instructions .ROUTE .COMPLEX 0RF Rx Instructions: 1 tab po at bedtime for 1 week 1 tab po bid for 1 week 1 tab po qam and 2 tabs bedtime for 1 week then 2 tabs bid thereafter Vitamin D3 Gummies 2 tab PO DAILY 0RF Discharge Orders: Discharge ED (Routine); Ordered 09/16/21 Ordered By: Arely Braga Referrals: Yue Galindo FNP [Primary Care Provider] - Discharge Diet: Advance as tolerated Discharge Activity: Increase activity as tolerated Patient Instructions: Epilepsy (ED) Activity Restrictions/Additional Instructions: Please come back to the emergency room for any more breakthrough episodes of seizure. Come back if any weakness in her arms, drooling, difficulty speaking, any neurological symptoms. Please do not swim bathe or drive a vehicle unattended. Coding Level of Care Code ED Welder 2Nd Shift for Dexter Guzman Exam Comprehensive
[2021-09-16 14:09] LABS: Alanine Aminotransferase 12 U/L (0-33); Albumin Level 4.8 g/dL (3.5-5.2); Alkaline Phosphatase 81 IU/L (35-105); Anion Gap 17.7 (5-19); Aspartate Amino Transferase 12 U/L (0-32); Blood Urea Nitrogen 13 mg/dL (6-20); Calcium 9.6 mg/dL (8.5-10.5); Carbon Dioxide 19 mmol/L (22-29); Chloride 105 mmol/L (98-107); Globulin 2.3 g/dL (1.3-4.6); Glomerular Filtration Rate 83.1 mL/min (90-130); Glucose 106 mg/dL (65-115); Lipase 43 U/L (13-60); Osmolality Calculated 285 mOsm/kg (285-295); Potassium 4.7 mmol/L (3.5-5.1); Sodium 137 mmol/L (136-145); Total Bilirubin 0.3 mg/dL (0.15-1.2); Total Protein 7.1 g/dL (6.6-8.7)
[2021-09-16 14:11] LABS: HCG, Serum Qual Negative (Negative)
[2021-09-16 16:14] VITALS: BP 95/57; PULSE 81; RESP 16; O2SAT 99
[2021-09-16 16:23] LABS: Add Urine Microscopic? NO; Charge for UA Resulting for Rev
[2021-09-16 16:33] LABS: Bilirubin Urine Neg (Negative); Blood Urine Neg (Negative); Glucose Urine UA Norm (Normal); Ketones Urine Negative (Negative); Leukocyte Esterase Urine Negative (Negative); Nitrate Urine Negative (Negative); Protein Urine Neg (Negative); Urine Appearance Clear (CLEAR); Urine Color Straw (Yellow); Urobilinogen Urine Norm (Negative); pH Urine 7 (5-7)
[2021-09-16] MEDS: LORazepam 2 mg/mL INJ 1 mL IVP (17:32)
[2021-09-16] MEDS: ketorolac 30 mg/mL INJ IVP (17:32)
[2021-09-16] MEDS: metoclopramide 5 mg/mL SDV 2 mL IVP (17:33)
[2021-09-16 18:09] VITALS: BP 105/72; PULSE 64; RESP 12; O2SAT 96
== END 2021-09-16 18:10 | disposition home or self-care (01) ==
PROVIDERS: Emergency Provider Emergency Medicine; PCP Nurse Practitioner Family
DX: R56.9 Unspecified convulsions (principal); Z79.899 Other long term (current) drug therapy
CPT/HCPCS: 80053; 81003; 83690; 84703; 85025; 93005; 96374; 96375; 99284; J1885; J1953; J2060; J2765; J7030

== ENCOUNTER 2021-10-21 16:59 | Outpatient (CLI) | payer BC, MEDICAID, SELFPAY ==
--- NOTE | 2021-10-21 17:06 | XRR_ITS ---
PROCEDURE INFORMATION: Exam: XR Chest Exam date and time: 10/21/2021 5:07 PM Age: 31 years old Clinical indication: Cough; Chest wall pain and left-sided; Patient HX: Lt side chest pain with deep breaths for 4 days; Additional info: Cough, rib pain, left sided TECHNIQUE: Imaging protocol: XR of the chest. Views: 2 views. Total images: 2 COMPARISON: CR (CHEST, ) 08/18/2021 1:11 AM FINDINGS: Lungs: Unremarkable. No consolidation. Pleural spaces: Unremarkable. No pleural effusion. No pneumothorax. Heart/Mediastinum: Unremarkable. No cardiomegaly. Bones/joints: Unremarkable. XR/XR chest 2V* [id number] IMPRESSION: No acute findings.
== END 2021-10-21 17:00 | disposition home or self-care (01) ==
PROVIDERS: PCP Nurse Practitioner Family; Visit Provider Nurse Practitioner Family
DX: R07.89 Other chest pain (principal); R05.9 Cough, unspecified
CPT/HCPCS: 71046

== ENCOUNTER 2021-11-07 10:49 | Outpatient (CLI) | payer BC, MEDICAID, SELFPAY ==
--- NOTE | 2021-11-07 11:00 | US_ITS ---
WS: [id number] ULTRASOUND PELVIS TECHNIQUE: Transabdominal and transvaginal. ULTRASOUND PELVIS TECHNIQUE: Transabdominal. CLINICAL INFORMATION: N83.209 - Unspecified ovarian cyst, unspecified side : No. COMPARISON: CT July 19, 2021 FINDINGS: Prior hysterectomy Adnexa: LEFT ovary not visualized due to bowel gas. Hemorrhagic RIGHT ovarian cyst/follicle with a fe w septations and internal debris measuring 1.7 x 1.7 cm. Right ovary size: 3.4 cm x 2.6 cm x 2.0 cm. Right ovary volume: 9.1 ccm3. Free fluid: None. Other findings: None. US/US pelvic with transvaginal IMPRESSION: 1. LEFT ovary not visualized due to bowel gas. 2. Hemorrhagic RIGHT ovarian cyst/follicle with a few septations and internal debris measuring 1.7 x 1.7 cm. 3. Prior hysterectomy
== END 2021-11-07 10:50 | disposition home or self-care (01) ==
LOC: RAD 10:50
PROVIDERS: PCP Nurse Practitioner Family; Visit Provider Nurse Practitioner Family
DX: N83.202 Unspecified ovarian cyst, left side (principal)
CPT/HCPCS: 76830; 76856

== ENCOUNTER 2021-11-15 14:40 | Emergency (ER) | payer BC, MEDICAID, SELFPAY ==
[2021-11-15 15:25] VITALS: BP 131/93; PULSE 88; RESP 18; TEMP 36.8; O2SAT 100; BMI 19.5
--- NOTE | 2021-11-15 18:06 | CTR_ITS ---
PROCEDURE INFORMATION: Exam: CT Head Without Contrast Exam date and time: 11/15/2021 6:25 PM Age: 31 years old Clinical indication: Condition or disease; Convulsions or seizures; Patient HX: Seizure, had right sided facial droop/right arm numbness and weakness, now resolved. HX of seizures. HX of nausea and vommitting PT says cysts in abd cause her seizures TECHNIQUE: Imaging protocol: Computed tomography of the head without contrast. Radiation optimization: All CT scans at this facility use at least one of these dose optimization techniques: automated exposure control; mA and/or kV adjustment per patient size (includes targeted exams where dose is matched to clinical indication); or iterative reconstruction. COMPARISON: CT head wo con* [id number] 08/23/2021 7:22 PM RADIATION DOSE METRICS: Total DLP (mGy-cm): 741.61 FINDINGS: Brain: Normal. No hemorrhage. No edema. Unremarkable white matter. No mass effect. Cerebral ventricles: No ventriculomegaly. Paranasal sinuses: Visualized sinuses are unremarkable. No fluid levels. Mastoid air cells: Visualized mastoid air cells are well aerated. Bones/joints: Unremarkable. No acute fracture. Soft tissues: Unremarkable. CT/CT head wo con* [id number] IMPRESSION: No acute intracranial abnormality.
--- NOTE | 2021-11-15 18:10 | PC.NURSE ---
PATIENT REFERRED TO WOMAN AT THE BEDSIDE WHEN BEING QUESTIONED. WHEN THIS RN ASKED IF ANY LABS HAVE BEEN DRAWN YET THE WOMAN AT THE BEDSIDE STATED NOTHING HAS BEEN DONE- I HAD TO HOOK HER UP TO THE MONITOR- THIS RN SPOKE WITH DR WEBER REGARDING TESTS- ADVISED NO IV/LABS AT THIS TIME
--- NOTE | 2021-11-15 18:14 | CTR_ITS ---
PROCEDURE INFORMATION: Exam: CT Abdomen And Pelvis Without Contrast Exam date and time: 11/15/2021 6:29 PM Age: 31 years old Clinical indication: Nausea and vomiting; Prior surgery; Surgery date: 6+ months; Surgery type: Hyst/kimberly/ c sections; Additional info: Abd pain TECHNIQUE: Imaging protocol: Computed tomography of the abdomen and pelvis without contrast. Radiation optimization: All CT scans at this facility use at least one of these dose optimization techniques: automated exposure control; mA and/or kV adjustment per patient size (includes targeted exams where dose is matched to clinical indication); or iterative reconstruction. COMPARISON: CT abdomen pelvis w con* [id number] 07/19/2021 12:25 PM RADIATION DOSE METRICS: Total DLP (mGy-cm): 799.87 FINDINGS: Liver: Normal. No mass. Gallbladder and bile ducts: Cholecystectomy. Pancreas: Normal. No ductal dilation. Spleen: Normal. No splenomegaly. Adrenal glands: Normal. No mass. Kidneys and ureters: Right kidney cyst, negative for follow-up advised. Stomach and bowel: Constipation. Appendix: No evidence of appendicitis. Intraperitoneal space: Unremarkable. No free air. No significant fluid collection. Vasculature: Unremarkable. No abdominal aortic aneurysm. Lymph nodes: Unremarkable. No enlarged lymph nodes. Urinary bladder: Unremarkable as visualized. Reproductive: Unremarkable as visualized. Bones/joints: Unremarkable. No acute fracture. Soft tissues: Unremarkable. CT/CT abdomen pelvis con [id number] IMPRESSION: 1. Negative for acute inflammatory process in the abdomen or pelvis. 2. Cholecystectomy. 3. Right kidney cyst, negative for follow-up advised. 4. Constipation.
--- NOTE | 2021-11-15 18:21 | CTR_ITS ---
PROCEDURE INFORMATION: Exam: CT Angiography Head With Contrast, Arteriography Exam date and time: 11/15/2021 6:40 PM Age: 31 years old Clinical indication: Condition or disease; Other: Seizure; Prior surgery; Surgery date: 6+ months; Surgery type: Tonsil/adenoid; Additional info: [place] TECHNIQUE: Imaging protocol: Computed tomography angiography of the head with contrast. Exam focused on the arteries. 3D rendering (Not supervised by radiologist): MIP and/or 3D reconstructed images were created by the technologist. Radiation optimization: All CT scans at this facility use at least one of these dose optimization techniques: automated exposure control; mA and/or kV adjustment per patient size (includes targeted exams where dose is matched to clinical indication); or iterative reconstruction. Contrast material: OMNI 350; Contrast volume: 95 ml; Contrast route: INTRAVENOUS (IV); COMPARISON: CT angio headneck* [id number] 08/23/2021 9:02 PM RADIATION DOSE METRICS: Total DLP (mGy-cm): 1421.5 FINDINGS: ANTERIOR CIRCULATION: Right internal carotid artery: Unremarkable. Intracranial segment is patent with no significant stenosis. No aneurysm. Right middle cerebral artery: Unremarkable. No occlusion or significant stenosis. No aneurysm. Right anterior cerebral artery: Unremarkable. No occlusion or significant stenosis. No aneurysm. Left internal carotid artery: Unremarkable. Intracranial segment is patent with no significant stenosis. No aneurysm. Left middle cerebral artery: Unremarkable. No occlusion or significant stenosis. No aneurysm. Left anterior cerebral artery: Unremarkable. No occlusion or significant stenosis. No aneurysm. POSTERIOR CIRCULATION: Right vertebral artery: Unremarkable. No occlusion or significant stenosis. No aneurysm. Left vertebral artery: Unremarkable. No occlusion or significant stenosis. No aneurysm. Basilar artery: Unremarkable. No occlusion or significant stenosis. No aneurysm. Right posterior cerebral artery: Unremarkable. No occlusion or significant stenosis. No aneurysm. Left posterior cerebral artery: Unremarkable. No occlusion or significant stenosis. No aneurysm. Brain: No definite mass, mass effect, or midline shift. Cerebral ventricles: No ventriculomegaly. Bones/joints: Unremarkable. No acute fracture. Soft tissues: Unremarkable. PROCEDURE INFORMATION: Exam: CT Angiography Neck With Contrast Exam date and time: 11/15/2021 6:40 PM Age: 31 years old Clinical indication: Condition or disease; Other: Seizure; Prior surgery; Surgery date: 6+ months; Surgery type: Tonsil/adenoid; Additional info: [place] TECHNIQUE: Imaging protocol: Computed tomography angiography of the neck with contrast. 3D rendering (Not supervised by radiologist): MIP and/or 3D reconstructed images were created by the technologist. Radiation optimization: All CT scans at this facility use at least one of these dose optimization techniques: automated exposure control; mA and/or kV adjustment per patient size (includes targeted exams where dose is matched to clinical indication); or iterative reconstruction. Contrast material: OMNI 350; Contrast volume: 95 ml; Contrast route: INTRAVENOUS (IV); COMPARISON: CT angio headne* [id number] 08/23/2021 9:02 PM RADIATION DOSE METRICS: Total DLP (mGy-cm): 1421.5 FINDINGS: Right common carotid artery: No stenosis. No dissection or occlusion. Right internal carotid artery: No stenosis of the extracranial segment. No dissection or occlusion. Right external carotid artery: No occlusion or stenosis of the origin. Left common carotid artery: No stenosis. No dissection or occlusion. Left internal carotid artery: No stenosis of the extracranial segment. No dissection or occlusion. Left external carotid artery: No occlusion or stenosis of the origin. Right vertebral artery: No stenosis. No dissection or occlusion. Left vertebral artery: No stenosis. No dissection or occlusion. Soft tissues: Normal. No significant soft tissue swelling. Bones/joints: No acute fracture. CT/CT angio [facility]* [id number] IMPRESSION: No large vessel stenosis or occlusion. IMPRESSION: No stenosis or occlusion. REFERENCES: NASCET CRITERIA. The degree of internal carotid artery stenosis is based on NASCET criteria. Normal is no stenosis. Mild is less than 50% stenosis. Moderate is 50-69% stenosis. Severe is 70% to 99% stenosis. Total occlusion is no detectable patent lumen.
--- NOTE | 2021-11-15 18:44 | ED_ITS ---
HPI - Seizure General: Chief Complaint: Seizure Stated Complaint: had a seizure earlier, numbness and facial droop Time Seen by Provider: 11/15/21 18:05 Source: patient Mode of arrival: ambulatory Limitations: no limitations History of Present Illness: HPI Narrative: 31-year-old female has had a long history of seizures over the last 6 to 8 months she states that they not been able to tell her because she is currently on Keppra for the seizures. States she had multiple seizures today and gets what seems to be like a Johnny's paralysis after her seizure she states this is steven ppened before as well she has had some right-sided vision changes after the seizure and weakness that has since resolved here. States she did hit her head on the headboard when she sees she is at her normal mentation does have a headache currently denies any other complaints. Seizure History: Yes Associated symptoms: Deny chest pain, chills or fever(s) Review of Systems Const: Denies: fever(s), chills, body aches or change in appetite Eyes: Denies: blurry vision or eye discomfort ENMT: Denies: throat pain or dental pain Card: Denies: chest pain Resp: Denies: dyspnea GI: Denies: abdominal pain, nausea, vomiting or diarrhea : Denies: dysuria Musc: Denies: neck pain or back pain Skin/Breast: Denies: rash Neuro: Reports: numbness in extremities, weakness in extremities and seizure-like activity Psych: Denies: depression Jay/Lymph: Denies: easy bruising All/Imm: Denies: urticaria PFSH ED PFSH: Medical History Anxiety and depression managed by PCP Endometriosis (~2018) reported diagnosis during u/s but confirmed during hysterectomy. No pertinent past medical history neghx: htn,dm,thyroid,dvt/pe PCP: Yue Galindo PCO (polycystic ovaries) PTSD (post-traumatic stress disorder) managed by PCP Seizure has neuro referral Surgical History H/O laparoscopy at 13 y/o for abdominal pain H/O skin graft Right lower leg History of section #1. 2009-- small pelvis and NRFHR #2. 2014-- Repeat #3. 2017-- Repeat with tubal ligation History of colonoscopy (~06/2020) History of esophagogastroduodenoscopy (EGD) (~06/2020) History of hysterectomy (~2017) ovaries spared; performed due to pain and precancer cells of the uterus [place] Hx of cholecystectomy Hx of tubal ligation (~2016) S/P tonsillectomy and adenoidectomy Family History Mother Diabetes Father Hypertension Grandfather Stroke Paternal Denies family history of Colon cancer Ovarian cancer Heart disease Hypercholesteremia Breast cancer Uterine cancer Thyroid disease Physical Exam Const: COMMON NORMALS: no acute distress, patient oriented x3 and healthy appearing HENMT: COMMON NORMALS: normocephalic and atraumatic HEAD & SCALP: normocephalic and atraumatic Eye: COMMON NORMALS: Equal, round and reactive pupils present and EOMs intact bilaterally PUPIL: Yes Equal, round and reactive pupils present Neck/C-Spine: COMMON NORMALS: full ROM and supple Chest: COMMONS NORMALS: normal inspection of the chest and normal palpation of entire chest wall Resp: COMMON NORMALS: normal respiratory effort, No retractions, No use of accessory muscles and clear to auscultation bilaterally AUSCULTATION: clear to auscultation bilaterally Cardio: COMMON NORMALS: regular rate, regular rhythm and No murmurs present (Cardio) RATE: regular rate RHYTHM: regular rhythm GI: COMMON NORMALS: Normal to inspection, nondistended, normoactive bowel sounds present, Soft to palpation, non-tender and no masses PALPATION: Yes Soft to palpation Extremity: COMMON NORMALS: normal to inspection and full ROM Neuro: COMMON NORMALS: patient oriented x3, moves all extremities and no focal motor deficits Psych: COMMON NORMALS: mental status grossly normal, Normal thought process present and cooperative THOUGHT PROCESS: Normal thought process present Skin: COMMON NORMALS: no rashes or lesions noted and no wounds GENERAL SKIN EXAM: no rashes or lesions noted Course Vital Signs: Vital signs: Vital Signs Temperature 98.2 F 11/15/21 15:25 Pulse Rate 88 11/15/21 15:25 Respiratory Rate 18 11/15/21 15:25 Blood Pressure 131/93 11/15/21 15:25 Pulse Oximetry 100 11/15/21 15:25 MDM - Seizure MDM Narrative Medical decision making narrative: Patient presents here with seizure long history of seizures she did have what sound to be Johnny's paralysis she is back to her baseline currently CT head and CT angio are all normal she had some abdominal pain showed no acute findings signs besides kidney cyst which I informed her of. She is to follow-up with neurology return if worsening she understands agrees to plan. Lab Data Result diagrams: 11/15/21 18:55 11/15/21 18:55 Labs: Radiology Impressions Head CT 11/15/21 18:06 IMPRESSION: No acute intracranial abnormality. Abdomen/Pelvis CT 11/15/21 18:14 IMPRESSION: 1. Negative for acute inflammatory process in the abdomen or pelvis. 2. Cholecystectomy. 3. Right kidney cyst, negative for follow-up advised. 4. Constipation. Head/Neck CTA 11/15/21 18:21 IMPRESSION: No large vessel stenosis or occlusion. IMPRESSION: No stenosis or occlusion. REFERENCES: NASCET CRITERIA. The degree of internal carotid artery stenosis is based on NASCET criteria. Normal is no stenosis. Mild is less than 50% stenosis. Moderate is 50-69% stenosis. Severe is 70% to 99% stenosis. Total occlusion is no detectable patent lumen. Laboratory Results WBC 7.1 10^3/uL (4.0-10.0) 11/15/21 18:55 RBC 3.86 10^6/uL (4.1-5.3) L 11/15/21 18:55 Hgb 12.0 g/dL (11.5-15.3) 11/15/21 18:55 Hct 34.8 % (37.0-47.0) L 11/15/21 18:55 MCV 90.2 fl (81-99) 11/15/21 18:55 MCH 31.1 pg (28.0-34.0) 11/15/21 18:55 MCHC 34.5 g/dL (30.0-36.0) 11/15/21 18:55 RDW 12.2 % (12.1-15.1) 11/15/21 18:55 Plt Count 274 10^3/cmm (130-400) 11/15/21 18:55 MPV 9.8 fL (7.4-10.4) 11/15/21 18:55 Neut % (Auto) 57.7 % 11/15/21 18:55 Lymph % (Auto) 38.7 % 11/15/21 18:55 [place] % (Auto) 3.2 % 11/15/21 18:55 Eos % (Auto) 0.0 % 11/15/21 18:55 Baso % (Auto) 0.3 % 11/15/21 18:55 Neut # (Auto) 4.09 10^3/uL (1.8-7.7) 11/15/21 18:55 Lymph # (Auto) 2.8 10^3/uL (0.8-4.8) 11/15/21 18:55 [place] # (Auto) 0.2 10^3/uL (0.2-0.9) 11/15/21 18:55 Eos # (Auto) 0.0 10^3/uL (0.0-0.8) 11/15/21 18: Baso # (Auto) 0.0 10^3/uL (0.0-0.1) 11/15/21 18: Nucleated RBC % (auto) 0 % 11/15/21 18: Nucleated RBCs # 0.0 /100WBC 11/15/21 18:55 Sodium 136 mmol/L (136-145) 11/15/21 18:55 Potassium 4.0 mmol/L (3.5-5.1) 11/15/21 18:55 Chloride 102 mmol/L (98-107) 11/15/21 18:55 Carbon Dioxide 25 mmol/L (22-29) 11/15/21 18:55 Anion Gap 13.0 (5-19) 11/15/21 18:55 BUN 7 mg/dL (6-20) 11/15/21 18:55 Creatinine 0.6 mg/dL (0.5-0.9) 11/15/21 18:55 GFR Calculation 115.9 mL/min (90-130) 11/15/21 18:55 Glucose 79 mg/dL (65-115) 11/15/21 18:55 Calculated Osmolality 279 mOsm/kg (285-295) L 11/15/21 18:55 Calcium 8.4 mg/dL (8.5-10.5) L 11/15/21 18:55 Total Bilirubin 0.2 mg/dL (0.15-1.2) 11/15/21 18:55 AST 12 U/L (0-32) 11/15/21 18:55 ALT 12 U/L (0-33) 11/15/21 18:55 Alkaline Phosphatase 61 IU/L (35-105) 11/15/21 18:55 Total Protein 6.2 g/dL (6.6-8.7) L 11/15/21 18:55 Albumin 4.0 g/dL (3.5-5.2) 11/15/21 18:55 Globulin 2.2 g/dL (1.3-4.6) 11/15/21 18:55 HCG, Qual Negative (Negative) 11/15/21 18:55 Discharge Plan Discharge Patient Disposition: Home Clinical Impression: Generalized seizure Condition: Stable Prescriptions: No Action buspirone 10 mg tablet 10 mg PO BID 0RF dicyclomine 10 mg capsule 10 mg PO BID 0RF fluoxetine 20 mg capsule 60 mg PO DAILY 0RF pantoprazole [Protonix] 40 mg tablet,delayed release (DR/EC) 40 mg PO DAILY Qty: 30 1RF ondansetron 4 mg tablet,disintegrating 4 mg PO Q8H PRN (Reason: nausea and vomiting) Qty: 30 1RF albuterol sulfate 90 mcg/actuation Hfa Aerosol Inhaler 2 puff INHALATION Q6H PRN (Reason: Shortness Of Breath) 0RF Keppra 500 mg Tablet 500 mg PO BEDTIME 0RF hydroxyzine HCl 25 mg Tablet 50 mg PO BEDTIME PRN (Reason: unknown) 0RF topiramate [Topamax] 50 mg Tablet See Rx Instructions .ROUTE .COMPLEX 0RF Rx Instructions: 1 tab po at bedtime for 1 week 1 tab po bid for 1 week 1 tab po qam and 2 tabs bedtime for 1 week then 2 tabs bid thereafter Vitamin D3 Gummies 2 tab PO DAILY 0RF Discharge Orders: Discharge ED (Routine); Ordered 11/15/21 Ordered By: Karen Frye Referrals: Olga Krueger MD [Physician] - 1-3 days Yue Galindo FNP [Primary Care Provider] - Discharge Diet: Advance as tolerated Discharge Activity: Resume usual activity Patient Instructions: Generalized Tonic Clonic Seizures (ED) Coding Level of Care Code ED Geotechnical Engineer for Dexter Fwchapo Exam Comprehensive
[2021-11-15] MEDS: iohexol 350 mg/mL 100 mL Btl IV (18:52)
[2021-11-15] MEDS: sodium chloride 0.9% 1,000 ML 999 ML IV (18:56)
[2021-11-15] MEDS: LORazepam 2 mg/mL INJ 1 mL 1 MG IVP (18:57)
[2021-11-15 19:04] LABS: Basophils % 0.3 %; Hematocrit 34.8 % (37.0-47.0); Lymphocytes # 2.8 10^3/uL (0.8-4.8); Lymphocytes % 38.7 %; Mean Corpuscular HGB Conc 34.5 g/dL (30.0-36.0); Mean Corpuscular Hemoglobin 31.1 pg (28.0-34.0); Mean Corpuscular Volume 90.2 fl (81-99); Mean Platelet Volume 9.8 fL (7.4-10.4); Monocytes # 0.2 10^3/uL (0.2-0.9); Monocytes % 3.2 %; Neutrophils # 4.09 10^3/uL (1.8-7.7); Neutrophils % 57.7 %; Nucleated Red Blood Cells % 0 %; Platelet Count 274 10^3/cmm (130-400); Red Blood Count 3.86 10^6/uL (4.1-5.3); Red Cell Distribution Width 12.2 % (12.1-15.1); White Blood Count 7.1 10^3/uL (4.0-10.0)
[2021-11-15 19:19] LABS: HCG, Serum Qual Negative (Negative)
[2021-11-15 19:22] LABS: Alanine Aminotransferase 12 U/L (0-33); Alkaline Phosphatase 61 IU/L (35-105); Aspartate Amino Transferase 12 U/L (0-32); Blood Urea Nitrogen 7 mg/dL (6-20); Calcium 8.4 mg/dL (8.5-10.5); Carbon Dioxide 25 mmol/L (22-29); Chloride 102 mmol/L (98-107); Globulin 2.2 g/dL (1.3-4.6); Glomerular Filtration Rate 115.9 mL/min (90-130); Glucose 79 mg/dL (65-115); Osmolality Calculated 279 mOsm/kg (285-295); Sodium 136 mmol/L (136-145); Total Bilirubin 0.2 mg/dL (0.15-1.2); Total Protein 6.2 g/dL (6.6-8.7)
[2021-11-15 19:59] VITALS: BP 143/82; PULSE 74; RESP 18; TEMP 36.8; O2SAT 100
--- NOTE | 2021-11-18 11:01 | DCPLANNER ---
Addendum entered by Ina Lakhani 01/28/22 12:13: Patient had a follow up appointment scheduled for 12.24.21 with neurology - patient did attend appointment. Addendum entered by Ina Lakhani 11/24/21 04:34: Patient has a follow up appointment scheduled for Friday, December 24, 2021 at 10:[address] Krueger. Clinic will call patient with appointment information. Original Note: manager hydraulic had message to schedule a follow up appointment for patient with neurology. manager hydraulic sent patients information to the front office staff at neurology. Patients information will be printed and reviewed. Clinic will call patient with appointment information.
== END 2021-11-15 20:01 | disposition home or self-care (01) ==
PROVIDERS: Emergency Provider Emergency Medicine; PCP Nurse Practitioner Family
DX: R56.9 Unspecified convulsions (principal)
CPT/HCPCS: 70450; 70496; 70498; 74176; 80053; 84703; 85025; 96361; 96374; 99284; J2060; J7030; Q9967

== ENCOUNTER 2021-12-11 11:30 | Outpatient (CLI) | payer BC, MEDICAID, SELFPAY ==
--- NOTE | 2021-12-11 11:45 | US_ITS ---
WS: [id number] TRANSABDOMINAL PELVIC AND TRANSVAGINAL PELVIC ULTRASOUND HISTORY: N83.202 - Unspecified ovarian cyst, left side COMPARISON: CT 11/15/2021, prior ultrasound 11/07/2021 Status post complete hysterectomy. No midline soft tissue. No free fluid. Urinary bladder as visualiz ed is negative. Right ovary: 2.1 cm x 1.7 cm x 2.6 cm. Small RIGHT ovary. No mass or abnormal vascularity. Left ovary: 2.5 cm x 2.5 cm x 1.9 cm. Normal size ovary. Small peripheral follicles. Normal vasculari ty. There is an additional small cystic mass within the LEFT adnexa which appears separate from the o vary. This additional cyst measures 1.1 x 0.9 x 1.1 cm. No increased vascularity. This may be a small parapelvic cyst or paraovarian cyst. No solid component. No free fluid. US/US pelvic with transvaginal IMPRESSION: 1. Status post hysterectomy. 2. Normal bilateral ovaries. No ovarian cysts. 3. Very small cyst within the LEFT adnexa which is separate from the ovary. Th is is probably a small paraovarian or parapelvic cyst. No solid component.
== END 2021-12-11 11:31 | disposition home or self-care (01) ==
LOC: RAD 11:31
PROVIDERS: PCP Family Medicine; Visit Provider Obstetrics & Gynecology
DX: N83.202 Unspecified ovarian cyst, left side (principal); R10.2 Pelvic and perineal pain
CPT/HCPCS: 76830; 76856

== ENCOUNTER → 2021-12-19 12:51 | Outpatient (BNVA) | payer BC, MEDICAID, SELFPAY | PROVIDERS: PCP Family Medicine; Visit Provider Specialist | DX: R56.9 Unspecified convulsions (principal) | CPT/HCPCS: 95816 ==

== ENCOUNTER → 2021-12-24 09:56 | Outpatient (BNVA) | payer BC, MEDICAID, SELFPAY | PROVIDERS: PCP Family Medicine; Referring Provider Emergency Medicine; Visit Provider Specialist | DX: R56.9 Unspecified convulsions (principal); G43.711 Chronic migraine without aura, intractable, with status migrainosus; F41.9 Anxiety disorder, unspecified; F32.A Depression, unspecified; F43.10 Post-traumatic stress disorder, unspecified | CPT/HCPCS: 99204; 99205 ==

== ENCOUNTER → 2022-01-20 12:37 | Outpatient (BNVA) | payer BC, MEDICAID, SELFPAY | PROVIDERS: PCP Family Medicine; Visit Provider Obstetrics & Gynecology | DX: R10.2 Pelvic and perineal pain (principal); N83.202 Unspecified ovarian cyst, left side; Z01.812 Encounter for preprocedural laboratory examination | CPT/HCPCS: 36415; 80053; 81000; 81025; 85025; 86850; 86900 ==

== ENCOUNTER 2022-01-22 05:38 | Day surgery (SDC) | payer BC, MEDICAID, SELFPAY ==
--- NOTE | 2022-01-20 13:53 | PC.NURSE ---
patient here for pre op. Patient already been to lab to lab work. canceled the pre op lab do to patient already going to lab and lab is already in computer.
[2022-01-20 13:58] VITALS: BMI 20.9
--- NOTE | 2022-01-20 14:19 | ANES.PREANE2 ---
Pre-Anesthetic Assessment Height/Weight: Height 1.68 m Weight 58.967 kg Preop Diagnosis: Pelvic pain Operation Date: 01/22/22 11:40 Proposed Procedures p Diagnostic Laparoscopy 26241,R10.2(Not Applicable) - Damien Green MD Familial anesthetic complications: Delayed awakening Was Beta Leonardo taken within 24 hours: N/A Was Clonidine taken within 24 hours: N/A Social Tobacco and No alcohol Exam alert, oriented x 3 and regular rate & rhythm Airway Submandibular: within normal limits Cervical ROM: within normal limits Mallampati: Class II Dentition: chipped Comments: Comments: Very poor dentition, multiple caries and chips/cracks GI Gastroesophageal Reflux Disease Neuropsych Anxiety, Depression and Seizure Anesthetic Plan ASA status: 2 Anesthesia: General Medications/Allergies Home Medications Medication Instructions Recorded Confirmed Last Taken Type diclofenac sodium 1 % topical gel 2 g topical QID #100 grams 11/27/21 01/20/22 Unknown Rx (Voltaren Arthritis Pain) levetiracetam 500 mg 2,000 mg PO DAILY #120 tabs 12/24/21 01/20/22 Unknown Rx tablet,extended release 24 hr (Keppra XR) albuterol sulfate 90 mcg/actuation 2 puff inhalation Q6H PRN 01/01/22 01/20/22 Unknown Rx aerosol inhaler Shortness Of Breath #8.5 grams hydroxyzine HCl 25 mg tablet 50 mg PO BEDTIME PRN unknown #60 01/01/22 01/20/22 Unknown Rx tabs ondansetron 4 mg disintegrating 4 mg PO Q8H PRN nausea and 01/01/22 01/20/22 Unknown Rx tablet vomiting #30 tabs pantoprazole 40 mg tablet,delayed 40 mg PO DAILY #30 tabs 01/01/22 01/20/22 Unknown Rx release (Protonix) Allergies Allergy/AdvReac Type Severity Reaction Status Date / Time topiramate [From Topamax] Allergy Intermediate rash,blisters Verified 01/20/22 08:53 in mouth clavulanic acid Allergy RASH Verified 01/20/22 08:53 [From Augmentin] Latex, Natural Rubber Allergy ALGY-Rash Verified 01/20/22 08:53 [facility] Anesthesia Medical History Anxiety and depression managed by PCP Endometriosis (~2018) reported diagnosis during u/s but confirmed during hysterectomy. No pertinent past medical history neghx: htn,dm,thyroid,dvt/pe PCP: Yue Galindo PCO (polycystic ovaries) PTSD (post-traumatic stress disorder) managed by PCP Seizure has neuro referral Surgical History H/O laparoscopy at 13 y/o for abdominal pain H/O skin graft Right lower leg History of section #1. 2009-- small pelvis and NRFHR #2. 2014-- Repeat #3. 2016-- Repeat with tubal ligation History of colonoscopy (~06/2020) History of esophagogastroduodenoscopy (EGD) (~06/2020) History of hysterectomy (~2017) ovaries spared; performed due to pain and precancer cells of the uterus [place] Hx of cholecystectomy Hx of tubal ligation (~2016) S/P tonsillectomy and adenoidectomy Family History Mother Diabetes Father Hypertension Grandfather Stroke Paternal Denies family history of Colon cancer Ovarian cancer Heart disease Hypercholesteremia Breast cancer Uterine cancer Thyroid disease Social History Smoking and tobacco status: current every day smoker cigarettes Packs smoked per day: 1.5 Years cigarettes smoked: 20 [ Other cigarette details: 2 PPD if stressed] Alcohol intake: never Lives independently: No Household members: spouse and children Marital status: Current occupational status: unemployed Current gender identity: Female Special crystal needs: No Agree to transfusion: Yes Data Anesthesia Cardiac Studies: No Data to Display
[2022-01-22] VITALS (16 sets, daily range): BP systolic 121–173; BP diastolic 75–118; PULSE 64–92; RESP 14–21; TEMP 36.2–37.2; O2SAT 97–100
[2022-01-22] MEDS: sodium chloride 0.9% 500 ML IV (06:24)
[2022-01-22] MEDS: scopolamine 1.5 Patch 1 PATCH TRANSDERMA (06:45)
[2022-01-22] MEDS: sodium chloride 0.9% 1,000 ML 30 ML IV (06:53)
--- NOTE | 2022-01-22 06:58 | W.PM.OPSUD ---
Surgery/Procedure H&P Update DATE OF PROCEDURE: January 22, 2022 DATE H&P PERFORMED: 01/20/22 H&P UPDATE INFORMATION: I have reviewed H&P completed within last 30 days, I have examined patient prior to procedure and No changes to prior documentation PREOP DIAGNOSIS: Pelvic pain PLANNED PROCEDURE: Operation Date: 01/22/22 08:05 Proposed Procedures p Diagnostic Laparoscopy 31180,R10.2(Not Applicable) - Damien Green MD
--- NOTE | 2022-01-22 07:16 | P.ANESUD_ITS ---
Pre-Anesthetic Update Pre-Anesthetic Assessment: Date of Surgery/Procedure: 01/22/22 Preop Kate gnosis: Pelvic pain Proposed Procedure: Operation Date: 01/22/22 08:05 Proposed Procedures p Diagnostic Laparoscopy 23856,R10.2(Not Applicable) - Damien Green MD Any changes to Pre-Anesthetic Assessment?: No Last Intake: Intake Last Liquid Date 01/21/22 Last Liquid Time 21:00 Last Solid Date 01/21/22 Last Solid Time 18:00 Vitals: Temperature 98.9 F 01/22/22 06:10 Temperature Source Temporal Artery S can 01/22/22 06:10 Pulse Rate 64 01/22/22 06:10 Respiratory Rate 16 01/22/22 06:10 Blood Pressure 121/75 01/22/22 06:10 Blood Pressure Elma n 90 01/22/22 06:10 Pulse Oximetry 98 01/22/22 06:10 Oxygen Delivery Me thod 01/22/22 06:10 Exam: Pre-Anes Outpt Exam: alert, oriented x 3, clear to auscultation bilaterally and regular rate & rhythm Cardiac Studies: No Data to Display
[2022-01-22] MEDS: ceFAZolin 2,000 MG in sodium chloride 0.9% (plus) 50 ML 100 MG IV (08:26)
--- NOTE | 2022-01-22 09:25 | P.OP_ITS ---
Operative Report Date of procedure: January 22, 2022 Pre-op diagnosis: Preop Diagnosis Pelvic pain Post-op diagnosis: Pelvic pain. Pelvic adhesions Post-op findings: Pelvic adhesions Procedure done: Diagnostic laparoscopy. Lysis of adhesions Surgeon: Damien Green MD Estimated blood loss (mL): 5 IV fluids (mL): 800 Urine output (mL): 300 Findings: Pelvic adhesions and adhesions to the anterior abdominal wall posterior to suprapubic scar Brief History: A 31-year-old female post hysterectomy with pelvic pain Procedure: DESCRIPTION OF PROCEDURE: After informed consent, the patient was taken to the operating room where general anesthesia was administered. The patient was examined under anesthesia and found to have a normal uterus with normal adnexa. She was placed in the dorsal lithotomy position and prepped and draped in sterile fashion. Pre- Procedure Time-Out verifying the correct patient identity, correct procedure verified with consent, correct site and side, correct patient position, availability of correct implants and any special equipment or requirements was performed and acknowledge by the OR team. A Chapman catheter was placed and a sponge stick was placed in the vagina. An intraumbilical incision was made with a scalpel. While tenting up on the abdomen, a Verres needle with sleeve was admitted into the intra-abdominal cavity. A saline drop test was performed and noted to be within normal limits. Pneumoperitoneum was attained with 4 liters of carbon dioxide. The Verres needle was removed. A 5 mm trocar and sleeve were admitted into the abdomen and laparoscopic confirmation of location was achieved, A second incision was made 3 cm above the symphysis pubis, and a 5 mm trocar and sleeve were admitted into the abdomen under direct, laparoscopic visualization without complication. A survey revealed normal abdominal anatomy but pelvic survey shows pelvic adhesions to anterior abdominal wall posterior to suprapubic sca from previous surgery. A 5 mm blunt probe was advanced through the second trocar sleeve, and light manipulation was performed. With the Voyant 5 mm sealing device the adhesions were all lysed without complications. Then the carbon dioxide was allowed to escape from the abdomen. The instruments were removed, and skin cover with a bandage. The instruments were removed from the vagina, and excellent hemostasis was noted. The patient tolerated the procedure well, and sponge, lap and needle count were correct times two. The patient taken to the recovery room in good condition.
[2022-01-22] MEDS: ondansetron 2 mg/ML SDV 2 mL 4 MG IVP (09:42)
[2022-01-22] MEDS: diphenhydrAMINE 50 mg/mL SDV 1mL 12.5 MG IVP (09:45)
[2022-01-22] MEDS: fentaNYL 50 mcg/mL INJ 2mL IVP ×2 (09:49→10:04)
[2022-01-22] MEDS: metoclopramide 5 mg/mL SDV 2 mL 10 MG IVP (10:00)
[2022-01-22] MEDS: HYDROmorphone 1 mg/mL INJ 1 mL 0.5 MG IVP ×2 (10:09→10:15)
--- NOTE | 2022-01-22 10:59 | ANE.PACU2 ---
Inpatient post-anesthesia follow up: Airway intact: Yes Vital signs: Temperature 97.7 F Pulse Rate 74 Respiratory Rate 16 Blood Pressure 160/96 Pulse Oximetry 99 Oxygen Delivery Me thod Room Air Oxygen Flow Rate Fraction of Inspir ed Oxygen Hydration adequate: Yes Nausea and vomiting: Yes Pain level: 4 Mental status: Baseline
== END 2022-01-22 11:08 | disposition home or self-care (01) ==
PROVIDERS: PCP Family Medicine; Visit Provider Obstetrics & Gynecology
PROC: (CPT 49320; principal; 2022-01-22 07:55)
DX: N73.6 Female pelvic peritoneal adhesions (postinfective) (principal); K21.9 Gastro-esophageal reflux disease without esophagitis; F41.9 Anxiety disorder, unspecified; F32.A Depression, unspecified; E28.2 Polycystic ovarian syndrome; F17.210 Nicotine dependence, cigarettes, uncomplicated
CPT/HCPCS: 49329; 36415; 81025; J0330; J1100; J1170; J1200; J2250; J2405; J2704; J2710; J2765; J3010; J3490; J7030; J7040

== ENCOUNTER → 2022-01-29 07:46 | Outpatient (BNVA) | payer BC, MEDICAID, SELFPAY | PROVIDERS: PCP Family Medicine; Referring Provider Specialist; Visit Provider Specialist | DX: R56.9 Unspecified convulsions (principal) | CPT/HCPCS: 95812; 95816 ==

== ENCOUNTER 2022-02-12 13:10 | Emergency (ER) | payer BC, MEDICAID, SELFPAY ==
[2022-02-12 13:31] VITALS: BP 160/89; PULSE 83; RESP 14; TEMP 36.8; O2SAT 97
[2022-02-12 14:57] LABS: Basophils % 0.3 %; Eosinophils % 0.3 %; Hematocrit 35.7 % (37.0-47.0); Hemoglobin 11.7 g/dL (11.5-15.3); Lymphocytes # 2.7 10^3/uL (0.8-4.8); Lymphocytes % 36.9 %; Mean Corpuscular HGB Conc 32.8 g/dL (30.0-36.0); Mean Corpuscular Hemoglobin 30.4 pg (28.0-34.0); Mean Corpuscular Volume 92.7 fl (81-99); Mean Platelet Volume 10.2 fL (7.4-10.4); Monocytes # 0.3 10^3/uL (0.2-0.9); Monocytes % 4.4 %; Neutrophils # 4.25 10^3/uL (1.8-7.7); Neutrophils % 57.8 %; Nucleated Red Blood Cells % 0 %; Platelet Count 246 10^3/cmm (130-400); Red Blood Count 3.85 10^6/uL (4.1-5.3); Red Cell Distribution Width 11.7 % (12.1-15.1); White Blood Count 7.3 10^3/uL (4.0-10.0)
[2022-02-12 15:16] LABS: HCG, Serum Qual Negative (Negative)
[2022-02-12 15:20] LABS: Alanine Aminotransferase 6 U/L (0-33); Albumin Level 4.1 g/dL (3.5-5.2); Alkaline Phosphatase 59 U/L (35-105); Anion Gap 11.6 (5-19); Aspartate Amino Transferase 9 U/L (0-32); Blood Urea Nitrogen 7 mg/dL (6-20); Calcium 9.2 mg/dL (8.5-10.5); Carbon Dioxide 27 mmol/L (22-29); Chloride 106 mmol/L (98-107); Globulin 2.4 g/dL (1.3-4.6); Glucose 88 mg/dL (65-115); Lipase 30 U/L (13-60); Osmolality Calculated 289 mOsm/kg (285-295); Potassium 3.6 mmol/L (3.5-5.1); Sodium 141 mmol/L (136-145); Total Bilirubin 0.3 mg/dL (0.15-1.2); Total Protein 6.5 g/dL (6.6-8.7)
== END 2022-02-12 17:00 | disposition left against medical advice (07) ==
PROVIDERS: Emergency Medicine; Emergency Provider Family Medicine; PCP Family Medicine
DX: Z53.21 Procedure and treatment not carried out due to patient leaving prior to being seen by health care provider (principal)
CPT/HCPCS: 80053; 81000; 83690; 84703; 85025

== ENCOUNTER → 2022-10-31 09:34 | Outpatient (BNVA) | payer BC, MEDICAID, SELFPAY | PROVIDERS: PCP Family Medicine; Visit Provider Nurse Practitioner Family | DX: R63.4 Abnormal weight loss (principal) | CPT/HCPCS: 80053; 82306; 82607; 83735; 84443; 85025 ==

== ENCOUNTER → 2022-11-20 13:11 | Outpatient (BNVA) | payer BC, MEDICAID, SELFPAY | PROVIDERS: PCP Family Medicine; Visit Provider Nurse Practitioner Family | DX: R10.9 Unspecified abdominal pain (principal) | CPT/HCPCS: 86003; 86008 ==

== ENCOUNTER 2022-11-21 09:36 | Outpatient (CLI) | payer BC, MEDICAID, SELFPAY ==
--- NOTE | 2022-11-21 10:00 | NM_ITS ---
WS: [id number] NUCLEAR MEDICINE GASTRIC STUDY CLINICAL INFORMATION: R11.2 - Nausea with vomiting, unspecified TECHNIQUE: Following oral ingestion of cooked egg mixed with 0.98 mCi technetium 99m sulfur colloid, anterior images of the stomach were obtained over the course of 90 minutes. Activity curve was perfor med over the course of 90 minutes with linear regression analysis. COMPARISON: None. FINDINGS: Oral ingestion of cooked egg mixed with 0.98 mCi technetium 99m sulfur colloid. Linear fit T1 half 137 minutes 26% emptying at 1 hour 44% emptying at 2 hours KS/[place] [id number] IMPRESSION: 1. Delayed gastric emptying with T1 half 137 minutes. (Normal 45-110 minutes) 2. Only 26% emptying at 1 hour *Normal median T1 half 90 minutes for solid egg meal (45-110 minutes). Delayed gastric retention is defined as 90% retained at 1 hour, 60% at 2 hour s, 30% at 3 hours, and 10% at 4 hours (normal percent gastric retention is 37-9 0% at 1 hour, 30-60% at 2 hours, and 0-10% at 4 hours).
== END 2022-11-21 09:37 | disposition home or self-care (01) ==
LOC: RAD 09:37
PROVIDERS: PCP Family Medicine; Visit Provider Nurse Practitioner Family
DX: K30 Functional dyspepsia (principal); R11.2 Nausea with vomiting, unspecified
CPT/HCPCS: 78264; 80053; 82306; 82607; 83735; 84443; 85025; A9541

== ENCOUNTER 2022-12-19 14:42 | Emergency (ER) | payer BC, MEDICAID, SELFPAY ==
[2022-12-19 14:47] VITALS: BP 171/93; PULSE 90; RESP 16; TEMP 36.6; O2SAT 97; BMI 18.6
--- NOTE | 2022-12-19 15:03 | XR_ITS ---
WS: [id number] Mandible series, 4 views, 12/19/2022 Clinical Data: left mandible swelling/pain after teeth removed Comparison: None. Findings: The teeth are absent. No mandibular fracture is seen. There is no bone destruction or erosion. XR/XR mandible <4V [id number] Impression: Negative mandible series.
--- NOTE | 2022-12-19 15:04 | W.ED.DENTAL ---
HPI - Dental/Oral General: Chief complaint: Dental/Oral Stated complaint: complete teeth extraction/massive swelling Time Seen by Provider: 12/19/22 14:50 History of Present Illness: Patient is a 32-year-old female comes to the ED with left mandible swelling and pain post tooth extraction procedure. Patient says yesterday she was at [place] in [facility] and had a dentist removed all of her teeth in her upper and lower jaws. This morning she woke up and she was having worsening pain in her left mandible and had some swelling and bruising noted. She rates her pain currently a 10 out of 10. She has been taking Tylenol and ibuprofen at home for pain. She has had some minimal episodes of bleeding of gums but they have resolved. Patient states she has been having on and off fevers since yesterday. Associated symptoms: Denies fever(s) or odynophagia Review of Systems Const: Denies: fever(s), chills or fatigue Eyes: Denies: change in vision or eye discomfort ENMT: Reports: dental pain; Denies: throat pain, odynophagia, nasal discharge or nasal congestion Card: Denies: chest pain, palpitations, edema, swelling of feet/ankles, dyspnea on exertion or orthopnea Resp: Denies: dyspnea, productive cough or non-productive cough GI: Denies: abdominal pain, nausea, vomiting, diarrhea, constipation or hematochezia : Denies: flank pain, dysuria or hematuria Musc: Denies: neck pain, back pain or extremity swelling Skin/Breast: Denies: rash or new lesions Neuro: Denies: headache(s), numbness in extremities or weakness in extremities PFSH ED PFSH: Medical History Aftercare following surgery of the genitourinary system Anxiety and depression Endometriosis (~2018) reported diagnosis during u/s but confirmed during hysterectomy. No pertinent past medical history neghx: htn,dm,thyroid,dvt/pe PCP: Yue Galindo PCO (polycystic ovaries) PTSD (post-traumatic stress disorder) managed by PCP Seizure has neuro referral Surgical History H/O laparoscopy at 13 y/o for abdominal pain H/O skin graft Right lower leg History of section #1. 2009-- small pelvis and NRFHR #2. 2015-- Repeat #3. 2017-- Repeat with tubal ligation History of colonoscopy (~06/2020) History of esophagogastroduodenoscopy (EGD) (~06/2020) History of hysterectomy (~2017) ovaries spared; performed due to pain and precancer cells of the uterus [place] Hx of cholecystectomy Hx of tubal ligation (~2016) S/P tonsillectomy and adenoidectomy Family History Mother Diabetes Father Hypertension Grandfather Stroke Paternal Denies family history of Colon cancer Ovarian cancer Heart disease Hypercholesteremia Breast cancer Uterine cancer Thyroid disease Social History Smoking and tobacco status: current every day smoker cigarettes Packs smoked per day: 1.5 Years cigarettes smoked: 20 [ Other cigarette details: 2 PPD if stressed] Alcohol intake: never Substance/Drug Use: current Substance/Drug use frequency: daily Other substance/drug use details: HAS MEDICAL MARIJUANA CARD Lives independently: No Household members: spouse and children Marital status: Current occupational status: unemployed Current gender identity: Female Special crystal needs: No Agree to transfusion: Yes Physical Exam Const: COMMON NORMALS: no acute distress, patient oriented x3 and alert HENMT: COMMON NORMALS: normocephalic HEAD & SCALP: normocephalic FACE & SINUS: ecchymosis on the left mandible and maxilla and edema on the left mandible and maxilla MOUTH: Normal oral and palatal mucosa present THROAT: posterior oropharynx normal and uvula midline OTHER: Patient's mouth is post teeth extraction and she has no active gingival bleeding seen. Neck/C-Spine: COMMON NORMALS: supple GENERAL: Yes normal visual inspection Resp: COMMON NORMALS: normal respiratory effort, No retractions, No use of accessory muscles and clear to auscultation bilaterally AUSCULTATION: clear to auscultation bilaterally Cardio: COMMON NORMALS: regular rate, regular rhythm, S1 normal heart sound present, S2 normal heart sound present, No gallops present (Cardio), No clicks present (Cardio), No murmurs present (Cardio) and Peripheral pulses 2+ throughout RATE: regular rate RHYTHM: regular rhythm HEART SOUNDS: S1 normal heart sound present and S2 normal heart sound present PERIPHERAL PULSES: Peripheral pulses 2+ throughout GI: COMMON NORMALS: Normal to inspection, nondistended, normoactive bowel sounds present, Soft to palpation, non-tender and no masses PALPATION: Yes Soft to palpation : COMMON NORMALS: Yes no CVA tenderness BLADDER/KIDNEY EXAM: Yes no CVA tenderness Back/Pelvis: COMMON NORMALS: no CVA tenderness Extremity: COMMON NORMALS: normal to inspection Neuro: COMMON NORMALS: patient oriented x3 SENSORIUM/ORIENTATION: Yes alert GAIT: Yes Normal gait present Skin: GENERAL SKIN EXAM: dry skin Course Vital Signs: Vital signs: Vital Signs Temperature 97.9 F 12/19/22 14:47 Pulse Rate 90 12/19/22 14:47 Respiratory Rate 16 12/19/22 14:47 Blood Pressure 171/93 12/19/22 14:47 Pulse Oximetry 97 12/19/22 14:47 Oxygen Delivery Me thod Room Air 12/19/22 14:47 MDM - Dental/Oral Medical Decision Making Patient is a 32-year-old female comes to the ED with left mandible swelling and pain post tooth extraction procedure. Patient says yesterday she was at [place] in [facility] and had a dentist removed all of her teeth in her upper and lower jaws. This morning she woke up and she was having worsening pain in her left mandible and had some swelling and bruising noted. She rates her pain currently a 10 out of 10. She has been taking Tylenol and ibuprofen at home for pain. She has had some minimal episodes of bleeding of gums but they have resolved. Patient states she has been having on and off fevers since yesterday. Vitals are stable. Patient has left mandible and left maxilla edema and ecchymosis. Patient's mouth appears status post teeth extraction and there is no active gingival bleeding seen. Rest of exam is benign. X-ray of the mandible showed no acute findings. She was given a dose of IM Zofran, morphine and Decadron here in the ED. She was able to tolerate p.o. fluids and was stable for discharge home. She was diagnosed status post tooth extraction and told to contact the dentist on Thursday. She was sent home with a prescription for hydrocodone and clindamycin. Return to ED precautions given. Patient understood and agreed with plan. Lab Data Radiology Impressions Mandible X-Ray 12/19/22 15:03 Impression: Negative mandible series. Discharge Plan Discharge Patient Disposition: Home Clinical Impression: Status post tooth extraction Condition: Stable Prescriptions: New clindamycin HCl 150 mg capsule 300 mg PO Q6H 7 Days Qty: 56 0RF No Action diclofenac sodium [Voltaren Arthritis Pain] 1 % gel 2 g topical QID Qty: 100 2RF Rx Instructions: apply to single elbow, wrist or hand; for hand includes palm/fingers/back of hand lamotrigine [Lamictal] 100 mg tablet 100 mg PO BID Qty: 60 5RF Rx Instructions: 1/2 tablet twice a day for 2 weeks, then 1 twice a day levetiracetam [Keppra XR] 500 mg tablet extended release 24 hr 1,000 mg PO DAILY Qty: 60 5RF pantoprazole [Protonix] 40 mg tablet,delayed release (DR/EC) 40 mg PO DAILY Qty: 30 2RF hydroxyzine HCl 25 mg tablet See Rx Instructions .ROUTE .COMPLEX Qty: 60 2RF Dose Instruction: TAKE TWO TABLETS BY MOUTH AT BEDTIME NEEDED Rx Instructions: TAKE TWO TABLETS BY MOUTH AT BEDTIME NEEDED citalopram 10 mg tablet 10 mg PO DAILY Qty: 30 0RF albuterol sulfate 90 mcg/actuation HFA aerosol inhaler 2 puff INHALATION Q6H PRN (Reason: Shortness Of Breath) Qty: 8.5 2RF cholecalciferol (vitamin D3) 1,250 mcg (50,000 unit) capsule 50,000 unit PO .weekly Qty: 4 2RF ondansetron 4 mg tablet,disintegrating See Rx Instructions .ROUTE .COMPLEX Qty: 30 1RF Dose Instruction: dissolve one tablet UNDER TONGUE EVERY 8 HOURS NEEDED FOR nausea AND vomiting Rx Instructions: dissolve one tablet UNDER TONGUE EVERY 8 HOURS NEEDED FOR nausea AND vomiting ibuprofen 800 mg tablet 800 mg PO TID PRN (Reason: pain) Qty: 60 0RF acetaminophen 325 mg capsule 325 mg PO Q4H PRN (Reason: fever or pain) Qty: 60 0RF Discharge Orders: Discharge ED (Routine); Ordered 12/19/22 Ordered By: Alfonso Small Referrals: Stormy Medeiros FNP [Primary Care Provider] - Discharge Diet: Advance as tolerated Discharge Activity: Increase activity as tolerated Patient Instructions: Opioid Safety Activity Restrictions/Additional Instructions: Give dentist office a call on December 22 for follow-up. Take medications as prescribed. Return to the ER or your medical provider if condition worsens. Please read and understand discharge instructions. Thank you for choosing [facility] for your healthcare needs today. Please realize this is an emergency room and that we are providing you with a medical screening exam and this may not be complete and all inclusive of all the testing and or work up that you may need to determine your ailment or severity of your illness. It is very important that you follow up as instructed or that you return to the Emergency Department should you have concerns or if your condition changes or worsens in any way. Coding Level of Care Code ED [employer] for Dexter Guzman
[2022-12-19] MEDS: ondansetron 2 mg/ML SDV 2 mL 4 MG IM (15:27)
[2022-12-19] MEDS: morphine 4 mg/mL SDV 1 mL IM (15:27)
[2022-12-19] MEDS: dexamethasone 10 mg/mL INJ IM (15:27)
== END 2022-12-19 16:38 | disposition home or self-care (01) ==
PROVIDERS: Emergency Provider Physician Assistant; PCP Nurse Practitioner Family
DX: Z98.818 Other dental procedure status (principal); F17.210 Nicotine dependence, cigarettes, uncomplicated
CPT/HCPCS: 70100; 96372; 99284; J1100; J2270; J2405

== ENCOUNTER → 2022-12-25 10:23 | Outpatient (BNVA) | payer BC, MEDICAID, SELFPAY | PROVIDERS: PCP Nurse Practitioner Family; Visit Provider Internal Medicine Cardiovascular Disease | DX: R00.0 Tachycardia, unspecified (principal) | CPT/HCPCS: 93005 ==

== ENCOUNTER 2023-01-28 12:07 | Outpatient (CLI) | payer BC, MEDICAID, SELFPAY ==
--- NOTE | 2023-01-28 12:15 | CT_ITS ---
WS: [id number] CT FACIAL BONES TECHNIQUE: Noncontrast facial bones with coronal and sagittal reformatted images. CLINICAL INFORMATION: S09.93XA - Unspecified injury of face, initial encounter COMPARISON: None. DLP: 583.[address] scans at [facility] use at least one of these dose optimization techniques: automated e xposure control; mA and/or kV adjustment per patient size (includes targeted exams where dose is matc hed to clinical indication); or iterative reconstruction. FINDINGS: Paranasal sinuses are well aerated. RIGHT vera bullosa. Mild mucosal thickening in the ethmoid air cells. Partially visualized mastoid air cells are well aerated. Normal posterior nasopharynx and para pharyngeal fat. Normal zygoma. No evidence of mandibular fracture or dislocation. Normal maxilla. Inf erior orbits are normal in appearance. Normal lamina papyracea. Lateral orbits are normal. Normal pte rygoid plates. IMPRESSION: No acute facial fractures
== END 2023-01-28 12:08 | disposition home or self-care (01) ==
PROVIDERS: PCP Nurse Practitioner Family; Visit Provider Nurse Practitioner Family
DX: S09.93XA Unspecified injury of face, initial encounter (principal); W19.XXXA Unspecified fall, initial encounter; R22.0 Localized swelling, mass and lump, head
CPT/HCPCS: 70486

== ENCOUNTER 2023-03-02 00:17 | Emergency (ER) | payer BC, MEDICAID, SELFPAY ==
[2023-03-02 00:30] VITALS: BP 135/83; PULSE 116; RESP 17; TEMP 37.7; O2SAT 97; BMI 18.0
[2023-03-02] MEDS: sodium chloride 0.9% 1,000 ML 999 ML IV (01:25)
[2023-03-02 01:44] LABS: Basophils % 0.2 %; Eosinophils % 0.2 %; Hematocrit 34.4 % (36-47); Lymphocytes # 0.2 10^3/uL (0.8-4.8); Lymphocytes % 5.5 %; Mean Corpuscular HGB Conc 33.7 g/dL (30-55); Mean Corpuscular Hemoglobin 30.7 pg (27-33); Mean Platelet Volume 9.9 fL (7.4-10.4); Monocytes # 0.2 10^3/uL (0.2-0.9); Monocytes % 5.5 %; Neutrophils # 3.82 10^3/uL (1.8-7.7); Neutrophils % 88.4 %; Nucleated Red Blood Cells % 0 %; Platelet Count 208 10^3/cmm (157-399); Red Blood Count 3.78 10^6/uL (3.85-5.65); Red Cell Distribution Width 12.3 % (12.1-15.1); White Blood Count 4.33 10^3/uL (3.29-11.43)
--- NOTE | 2023-03-02 01:45 | ED_ITS ---
HPI - Back Pain/Injury General: Chief Complaint: Back Pain/Injury Stated Complaint: fever, headache Time Seen by Provider: 03/02/23 01:06 Source: patient Mode of arrival: ambulatory Limitations: no limitations History of Present Illness: Patient presents emergency department today for evaluation treatment of approximately 24 hours of fever, bilateral flank pain, mid back pain, and an episode of vomiting. Patient states that starting today she noticed bilateral flank pain extending up into the mid back. She reports only 1-2 episodes of vomiting today but states fever has gotten up to 103. She endorses some dysuria and reports abdominal pain as crampy . Patient reports her began havi ng similar symptoms after she started developing symptoms but thinks it may be due to sympathy symptoms. Review of Systems General: Reports: 10 or more systems reviewed and unremarkable except in HPI and below PFSH ED PFSH: Medical History Aftercare following surgery of the genitourinary system Anxiety and depression Endometriosis (~2018) reported diagnosis during u/s but confirmed during hysterectomy. No pertinent past medical history neghx: htn,dm,thyroid,dvt/pe PCP: Yue Galindo PCO (polycystic ovaries) Psychiatric care PTSD (post-traumatic stress disorder) managed by PCP Seizure has neuro referral Surgical History H/O laparoscopy at 13 y/o for abdominal pain H/O skin graft Right lower leg History of section #1. 2010-- small pelvis and NRFHR #2. 2014-- Repeat #3. 2017-- Repeat with tubal ligation History of colonoscopy (~06/2020) History of esophagogastroduodenoscopy (EGD) (~06/2020) History of hysterectomy (~2017) ovaries spared; performed due to pain and precancer cells of the uterus [place] Hx of cholecystectomy Hx of tubal ligation (~2016) S/P tonsillectomy and adenoidectomy Family History Mother Diabetes Father Hypertension Grandfather Stroke Paternal Denies family history of Colon cancer Ovarian cancer Heart disease Hypercholesteremia Breast cancer Uterine cancer Thyroid disease Social History (Reviewed 03/02/23 @ 01:48 by MARCIN Nagy Smoking and tobacco status: current every day smoker cigarettes Packs smoked per day: 1.5 Years cigarettes smoked: 20 [ Other cigarette details: 2 PPD if stressed] Alcohol intake: never Substance/Drug Use: current Substance/Drug use frequency: daily Other substance/drug use details: HAS MEDICAL MARIJUANA CARD Lives independently: No Household members: spouse and children Marital status: Current occupational status: unemployed Current gender identity: Female Special crystal needs: No Agree to transfusion: Yes Physical Exam Const: COMMON NORMALS: no acute distress, patient oriented x3 and alert HENMT: COMMON NORMALS: normocephalic, atraumatic, hearing grossly normal bilaterally and moist oral mucous membranes HEAD & SCALP: normocephalic and atraumatic Eye: COMMON NORMALS: Equal, round and reactive pupils present, EOMs intact bilaterally and conjunctivae normal CONJUNCTIVA: Yes conjunctivae normal PUPIL: Yes Equal, round and reactive pupils present Neck/C-Spine: COMMON NORMALS: full ROM and no JVD Lymph: LYMPHATIC: no lymphadenopathy noted Resp: COMMON NORMALS: normal respiratory effort, No retractions, No use of accessory muscles and clear to auscultation bilaterally AUSCULTATION: clear to auscultation bilaterally Cardio: COMMON NORMALS: no JVD, regular rate and regular rhythm RATE: regular rate RHYTHM: regular rhythm GI: OTHER: Abdomen is soft. No specific tenderness on palpation noted. Normal active bowel sounds. Back/Pelvis: COMMON NORMALS: thoraco-lumbar ROM normal OTHER: Patient is able to sit up and lean back independently but has noticeable CVA tenderness on percussion. Extremity: COMMON NORMALS: normal to inspection, full ROM and capillary refill normal Neuro: COMMON NORMALS: patient oriented x3 SENSORIUM/ORIENTATION: Yes alert Psych: COMMON NORMALS: mental status grossly normal, Normal thought process present, cooperative, normal affect and activity/motor behavior normal THOUGHT PROCESS: Normal thought process present Skin: COMMON NORMALS: no rashes or lesions noted and no wounds GENERAL SKIN EXAM: no rashes or lesions noted Course Vital Signs: Vital signs: Vital Signs Temperature 99.9 F H 03/02/23 00:30 Pulse Rate 68 03/02/23 02:03 Respiratory Rate 24 H 03/02/23 02:03 Blood Pressure 148/56 03/02/23 02:03 Pulse Oximetry 94 03/02/23 02:03 Oxygen Delivery Me thod Room Air 03/02/23 02:03 MDM - Back Pain/Injury Medical Decision Making Patient CBC came back with a low white blood cell count. Considering her concern for pyelonephritis given the location of pain, urinary symptoms, and fever, I would have expected an elevated white blood cell count. I began considering other options for viral component and did request a COVID swab be performed. Patient's urinalysis posted without any signs of blood, white blood cells, or bacteria. Patient's COVID swab did come back positive. Discussed positive COVID finding with the patient and explained that this can still be the cause of her symptoms including difficult to treat headache, fever, myalgias and upset stomach. We did discuss treatment with antiviral therapy however, patient is uninterested as she has never taken the medication before and does not want to take it with her other medications. We discussed [id number] symptomatic treatment during this time. Discussed the importance of her staying hydrated. Explained that if she has any acute worsening in her chronic condition such as seizures or asthma she needs to return to the emergency department. Patient verbalized understanding and agreement to treatment plan. Differential Diagnosis Unlikely lumbar radiculopathy, sciatica, strain of lumbar region, renal colic, pyelonephritis or thoracic back pain Labs 03/02/23 01:20 03/02/23 01:20 Laboratory Results WBC 4.33 10^3/uL (3.29-11.43) 03/02/23 01:20 RBC 3.78 10^6/uL (3.85-5.65) L 03/02/23 01:20 Hgb 11.60 g/dL (11.27-16.99) 03/02/23 01:20 Hct 34.4 % (36-47) L 03/02/23 01:20 MCV 91.0 fl (85-98) 03/02/23 01:20 MCH 30.7 pg (27-33) 03/02/23 01:20 MCHC 33.7 g/dL (30-55) 03/02/23 01:20 RDW 12.3 % (12.1-15.1) 03/02/23 01:20 Plt Count 208 10^3/cmm (157-399) 03/02/23 01:20 MPV 9.9 fL (7.4-10.4) 03/02/23 01:20 Neut % (Auto) 88.4 % 03/02/23 01:20 Lymph % (Auto) 5.5 % 03/02/23 01:20 [place] % (Auto) 5.5 % 03/02/23 01:20 Eos % (Auto) 0.2 % 03/02/23 01:20 Baso % (Auto) 0.2 % 03/02/23 01:20 Neut # (Auto) 3.82 10^3/uL (1.8-7.7) 03/02/23 01:20 Lymph # (Auto) 0.2 10^3/uL (0.8-4.8) L 03/02/23 01:20 [place] # (Auto) 0.2 10^3/uL (0.2-0.9) 03/02/23 01:20 Eos # (Auto) 0.0 10^3/uL (0.0-0.8) 03/02/23 01:20 Baso # (Auto) 0.0 10^3/uL (0.0-0.1) 03/02/23 01:20 Nucleated RBC % (auto) 0 % 03/02/23 01:20 Nucleated RBCs # 0.0 /100WBC 03/02/23 01:20 Sodium 137 mmol/L (136-145) 03/02/23 01:20 Potassium 3.8 mmol/L (3.5-5.1) 03/02/23 01:20 Chloride 103 mmol/L (98-107) 03/02/23 01:20 Carbon Dioxide 25 mmol/L (22-29) 03/02/23 01:20 Anion Gap 12.8 (5-19) 03/02/23 01:20 BUN 6 mg/dL (6-20) 03/02/23 01:20 Creatinine 0.7 mg/dL (0.5-0.9) 03/02/23 01:20 GFR Calculation 96.4 mL/min (90-130) 03/02/23 01:20 Glucose 117 mg/dL (65-115) H 03/02/23 01:20 Calculated Osmolality 283 mOsm/kg (285-295) L 03/02/23 01:20 Calcium 8.9 mg/dL (8.5-10.5) 03/02/23 01:20 Total Bilirubin 0.2 mg/dL (0.15-1.2) 03/02/23 01:20 AST 14 U/L (0-32) 03/02/23 01:20 ALT 13 U/L (0-33) 03/02/23 01:20 Alkaline Phosphatase 71 U/L (35-105) 03/02/23 01:20 C-Reactive Protein 10.2 mg/L (0.0-4.9) H 03/02/23 01:20 Total Protein 6.8 g/dL (6.6-8.7) 03/02/23 01:20 Albumin 4.3 g/dL (3.5-5.2) 03/02/23 01:20 Globulin 2.5 g/dL (1.3-4.6) 03/02/23 01:20 HCG, Qual Negative (Negative) 03/02/23 02:00 Urine Color Light yellow (Yellow) 03/02/23 02:00 Urine Appearance Clear (CLEAR) 03/02/23 02:00 Urine pH 6 (5-7) 03/02/23 02:00 Ur Specific [place] 1.005 (1.005-1.030) 03/02/23 02:00 Urine Protein Neg (Negative) 03/02/23 02:00 Urine Glucose (UA) Norm (Normal) 03/02/23 02:00 Urine Ketones Negative (Negative) 03/02/23 02:00 Urine Blood Neg (Negative) 03/02/23 02:00 Urine Nitrate Negative (Negative) 03/02/23 02:00 Urine Bilirubin Neg (Negative) 03/02/23 02:00 Urine Urobilinogen Neg mg/dL (Negative) 03/02/23 02:00 Ur Leukocyte Esterase Negative (Negative) 03/02/23 02:00 SARS-CoV-2 Ag (Rapid) positive (Negative) H 03/02/23 01:55 No radiology studies performed this visit Discharge Plan Discharge Patient Disposition: Home Clinical Impression: COVID-19 Condition: Stable Prescriptions: New ondansetron 4 mg tablet,disintegrating 4 mg PO Q8H 5 Days Qty: 15 0RF No Action diclofenac sodium [Voltaren Arthritis Pain] 1 % gel 2 g topical QID Qty: 100 2RF Rx Instructions: apply to single elbow, wrist or hand; for hand includes palm/fingers/back of hand levetiracetam [Keppra XR] 500 mg tablet extended release 24 hr 1,000 mg PO DAILY Qty: 60 5RF citalopram 10 mg tablet 10 mg PO DAILY Qty: 30 0RF hydroxyzine HCl 25 mg tablet See Rx Instructions PO QID PRN (Reason: itching) Qty: 90 0RF Rx Instructions: 1-2 tablets orally four times daily PRN; prednisone 10 mg tablets,dose pack See Rx Instructions PO PER PKG DIR Qty: 21 0RF Rx Instructions: PO PER PKG DIR albuterol sulfate 90 mcg/actuation HFA aerosol inhaler 2 puff INHALATION Q6H PRN (Reason: Shortness Of Breath) Qty: 8.5 2RF cholecalciferol (vitamin D3) 1,250 mcg (50,000 unit) capsule 50,000 unit PO .weekly Qty: 4 2RF ondansetron 4 mg tablet,disintegrating See Rx Instructions .ROUTE .COMPLEX Qty: 30 1RF Dose Instruction: dissolve one tablet UNDER TONGUE EVERY 8 HOURS NEEDED FOR nausea AND vomiting Rx Instructions: dissolve one tablet UNDER TONGUE EVERY 8 HOURS NEEDED FOR nausea AND vomiting hydroxyzine HCl 25 mg tablet See Rx Instructions .ROUTE .COMPLEX Qty: 60 2RF Dose Instruction: take two tablets BY MOUTH at bedtime NEEDED Rx Instructions: take two tablets BY MOUTH at bedtime NEEDED pantoprazole 40 mg tablet,delayed release (DR/EC) See Rx Instructions .ROUTE .COMPLEX Qty: 30 2RF Dose Instruction: take one tablet BY MOUTH EVERY DAY Rx Instructions: take one tablet BY MOUTH EVERY DAY ibuprofen 800 mg tablet 800 mg PO TID PRN (Reason: pain) Qty: 60 0RF acetaminophen 325 mg capsule 325 mg PO Q4H PRN (Reason: fever or pain) Qty: 60 0RF Discharge Orders: Discharge ED (Routine); Ordered 03/02/23 Ordered By: Nori Rojas Referrals: Stormy Medeiros FNP [Primary Care Provider] - Discharge Diet: Usual diet Discharge Activity: Increase activity as tolerated Patient Instructions: COVID-19 (Coronavirus Disease 2019) (ED), COVID-19 and Chronic Health Conditions (ED), How to Recover from COVID-19 at Home (ED), Social Distancing Guidelines for COVID-19 (ED) Activity Restrictions/Additional Instructions: Evaluation today led me to be concerned for COVID which you did test positive for here in the emergency department. Unfortunately, symptoms can last about a week and include daily fevers, difficult to treat headaches and body aches in addition to acute worsening of chronic conditions. For that reason I would like you to carefully monitor your symptoms at home for any change or worsening and seek reevaluation if not able to control symptoms at home. You can still use [id number] medications for specific treatment of symptoms. It is very important that you stay well-hydrated during this time as well. I have given you several informational handouts about COVID to go over at home to be aware of the recommended return precautions. Coding Level of Care Code ED Drug And Alcohol Counsellor for Dexter Guzman
[2023-03-02 01:53] LABS: Alanine Aminotransferase 13 U/L (0-33); Albumin Level 4.3 g/dL (3.5-5.2); Alkaline Phosphatase 71 U/L (35-105); Anion Gap 12.8 (5-19); Aspartate Amino Transferase 14 U/L (0-32); Blood Urea Nitrogen 6 mg/dL (6-20); C Reactive Protein 10.2 mg/L (0.0-4.9); Calcium 8.9 mg/dL (8.5-10.5); Carbon Dioxide 25 mmol/L (22-29); Chloride 103 mmol/L (98-107); Globulin 2.5 g/dL (1.3-4.6); Glomerular Filtration Rate 96.4 mL/min (90-130); Glucose 117 mg/dL (65-115); Osmolality Calculated 283 mOsm/kg (285-295); Potassium 3.8 mmol/L (3.5-5.1); Sodium 137 mmol/L (136-145); Total Bilirubin 0.2 mg/dL (0.15-1.2); Total Protein 6.8 g/dL (6.6-8.7)
[2023-03-02 02:02] LABS: Add Urine Microscopic? NO; Charge for UA Resulting for Rev
[2023-03-02 02:03] VITALS: BP 148/56; PULSE 68; RESP 24; O2SAT 94
[2023-03-02 02:09] LABS: HCG Qualitative Urine. Negative (Negative)
[2023-03-02 02:10] LABS: Bilirubin Urine Neg (Negative); Blood Urine Neg (Negative); Glucose Urine UA Norm (Normal); Ketones Urine Negative (Negative); Leukocyte Esterase Urine Negative (Negative); Nitrate Urine Negative (Negative); Protein Urine Neg (Negative); Specific Gravity, Urine 1.005 (1.005-1.030); Urine Appearance Clear (CLEAR); Urine Color Light yellow (Yellow); Urobilinogen Urine Neg (Negative); pH Urine 6 (5-7)
[2023-03-02 02:20] LABS: SARS Covid-2 Antigen positive (Negative)
[2023-03-02] MEDS: metoclopramide 5 mg/mL SDV 2 mL 10 MG IVP (02:53)
[2023-03-02] MEDS: ketorolac 30 mg/mL INJ IVP (02:54)
[2023-03-02 02:55] VITALS: BP 121/71; PULSE 105; RESP 16; O2SAT 99
== END 2023-03-02 03:00 | disposition home or self-care (01) ==
PROVIDERS: Emergency Provider Physician Assistant; PCP Nurse Practitioner Family
DX: U07.1 COVID-19 (principal); F17.210 Nicotine dependence, cigarettes, uncomplicated
CPT/HCPCS: 80053; 81003; 81025; 85025; 86140; 87426; 96361; 96374; 96375; 99284; J1885; J2765; J7030

== ENCOUNTER → 2023-07-20 11:45 | Outpatient (BNVA) | payer BC, MEDICAID, SELFPAY | PROVIDERS: PCP Nurse Practitioner Family; Visit Provider Nurse Practitioner Family | DX: R73.9 Hyperglycemia, unspecified (principal); E55.9 Vitamin D deficiency, unspecified | CPT/HCPCS: 80053; 80061; 82306; 83036; 84443; 85025 ==

== ENCOUNTER → 2023-09-23 10:38 | Outpatient (BNVA) | payer BC, MEDICAID, SELFPAY | PROVIDERS: PCP Nurse Practitioner Family; Visit Provider Nurse Practitioner Family | DX: E55.9 Vitamin D deficiency, unspecified (principal) | CPT/HCPCS: 80053; 82306; 85025 ==

== ENCOUNTER → 2024-01-20 14:29 | Outpatient (BNVA) | payer BC, MEDICAID, SELFPAY | PROVIDERS: PCP Nurse Practitioner Family; Visit Provider Nurse Practitioner Family | DX: R07.9 Chest pain, unspecified (principal); R73.9 Hyperglycemia, unspecified; E55.9 Vitamin D deficiency, unspecified | CPT/HCPCS: 80053; 80061; 82306; 83036; 84443; 85025; 93005 ==

== ENCOUNTER → 2024-01-21 15:36 | Outpatient (BNVA) | payer BC, MEDICAID, SELFPAY | PROVIDERS: PCP Nurse Practitioner Family; Visit Provider Nurse Practitioner Family | DX: R11.2 Nausea with vomiting, unspecified (principal) | CPT/HCPCS: 87338 ==

== ENCOUNTER 2024-02-05 11:42 | Outpatient (CLI) | payer BC, MEDICAID, SELFPAY ==
--- NOTE | 2024-02-05 | ECG_ITS ---
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 Interpretive Statements EXERCISE STRESS TEST EXERCISE DATA: The patient was exercised by Lauri protocol. Baseline heart rate was 116 beats per minute. Baseline blood pressure was 118/90 millimeters of mercury. Maximal predicted heart rate was 186 beats per minute. Maximum heart rate achieved was 185, which was 99% of the maximum predicted heart rate. Maximum blood pressure was 157/107 millimeters of mercury. Total exercise time was 5 minutes 22 seconds. Maximum METs achieved was 7. The reason for ending the test was target heart rate acheieved. The patient complained of shortness of breath during the stress test, which then resolved at the end of the test. ELECTROCARDIOGRAM: BASELINE: Showed sinus tachycardia, normal axis, no significant ST-T changes at the baseline noted. [] EXERCISE: At the peak exercise level, [] No significant ST-T changes suggestive of ischemia noted. [] RECOVERY: During the recovery period, heart rate dropped appropriately. No significant ST-T changes in the recovery suggestive of ischemia noted. [] CONCLUSION: 1. Exercise capacity is fair 2. Heart rate response was appropriate 3. Blood pressure response was appropriate 4. Symptoms not suggestive of ischemia. 5. Stress test does not show evidence of ischemia. Electronically Signed On 02-05-2024 19:51:26 CDT by Ramiro Hillman M.D. [email or web address]
[2024-02-05 11:56] VITALS: BMI 25.0
[2024-02-05 12:40] VITALS: BP 134/88; PULSE 108
== END 2024-02-05 11:43 | disposition home or self-care (01) ==
PROVIDERS: PCP Nurse Practitioner Family; Visit Provider Nurse Practitioner Family
DX: R07.9 Chest pain, unspecified (principal)
CPT/HCPCS: 93017

== ENCOUNTER → 2024-06-14 12:54 | Outpatient (BNVA) | payer MEDICARE, MEDICAID, SELFPAY | PROVIDERS: PCP Nurse Practitioner Family; Visit Provider Nurse Practitioner Family | DX: I10 Essential (primary) hypertension (principal); E55.9 Vitamin D deficiency, unspecified; R73.9 Hyperglycemia, unspecified; Z09 Encounter for follow-up examination after completed treatment for conditions other than malignant neoplasm | CPT/HCPCS: 80053; 80061; 82306; 82607; 83036; 84443; 85025 ==

== ENCOUNTER 2024-07-06 06:39 | Outpatient (CLI) | payer MEDICAID, MEDICARE, SELFPAY ==
--- NOTE | 2024-07-06 07:00 | USCV_ITS ---
Christel Altamirano Age: 34 Gender: F : 1990 Exam Date: 07/06/2024 07:09 Ordering Phys: Stormy Medeiros [employer] Technologist: Exam Location: [facility] [place] Indication: bbb BP: 139 / 80 HR: 89 Rhythm: Sinus Technical Quality: Adequate MEASUREMENTS (Male / Female) Normal Values 2D ECHO LV Diastolic Diameter PLAX 4.3 cm 4.2 - 5.9 / 3.9 - 5.3 cm IVS Diastolic Thickness 1.0 cm 0.6 - 1.0 / 0.6 - 0.9 cm IVS Systolic Thickness 1.5 cm LVPW Diastolic Thickness 1.2 cm 0.6 - 1.0 / 0.6 - 0.9 cm LVPW Systolic Thickness 1.8 cm LVOT Diameter 2.1 cm LV Ejection Fraction 2D Teich 65.7 % LV Ejection Fraction MOD 4C 58.1 % LV Ejection Fraction MOD 2C 56.4 % LV Ejection Fraction 2C AL 54.9 % LA Diameter 2.6 cm RA Systolic Volume 4C AL 31.3 ml RA Systolic Volume 4C MOD 29.8 ml LA Sys Volume AL 57.4 cm cubed LA Sys Volume Index AL 33.9 cm cubed/m squared Aorta at Sinotubular Diameter 3.1 cm IVC Diameter 1.8 cm M-MODE LA Ao Ratio MM 1.0 AV Cusp Separation MM 2.0 cm DOPPLER AV Peak Velocity 112.0 cm/s LVOT Peak Velocity 101.0 cm/s AV Area Cont Eq vti 3.6 cm squared AV Area Cont Eq pk 3.2 cm squared MV Peak Velocity 114.0 cm/s MV Area PHT 4.2 cm squared Mitral E to A Ratio 1.8 TR Peak Velocity 149.0 cm/s TR Peak Gradient 8.9 mmHg TV Peak E Velocity 101.0 cm/s PV Peak Velocity 114.0 cm/s FINDINGS Left Ventricle Normal left ventricular size, systolic function and wall thickness, with no regional wall motion abnormalities. Left ventricular ejection fraction is estimated at 60%. Normal diastolic function. Right Ventricle The right ventricle is normal in size and function. Right Atrium The right atrium is normal in size. Left Atrium The left atrium is normal in size. Mitral Valve Structurally normal mitral valve without significant stenosis or prolapse. There is no mitral regurgitation. Aortic Valve Structurally normal aortic valve without significant sclerosis or stenosis. There is no aortic regurgitation. Tricuspid Valve Structurally normal tricuspid valve without significant stenosis or regurgitation. Pulmonic Valve Structurally normal pulmonic valve without significant stenosis. There is no pulmonic regurgitation. Pericardium Normal pericardium without effusion. Aorta Normal ascending aorta dimension. IVC The inferior vena cava appears normal. CONCLUSIONS Normal left ventricular size, systolic function and wall thickness, with no regional wall motion abnormalities. Left ventricular ejection fraction is estimated at 60%. Normal diastolic function. No significant chamber abnormalities. No significant valve abnormalities. There is no pericardial effusion. Right atrial pressure is around 5 mm of mercury. Suzanna Dewey MD (Electronically Signed) Final Date: 06 July 2024 17:04 S
== END 2024-07-06 06:40 | disposition home or self-care (01) ==
LOC: RAD 06:46
PROVIDERS: PCP Nurse Practitioner Family; Visit Provider Nurse Practitioner Family
DX: R07.9 Chest pain, unspecified (principal); R06.09 Other forms of dyspnea
CPT/HCPCS: 93306

== ENCOUNTER → 2025-01-26 13:17 | Outpatient (BNVA) | payer MEDICARE, MEDICAID, SELFPAY | PROVIDERS: PCP Nurse Practitioner Family; Visit Provider Nurse Practitioner Family | DX: R56.9 Unspecified convulsions (principal); J30.9 Allergic rhinitis, unspecified; M25.532 Pain in left wrist | CPT/HCPCS: 80053; 80061; 82306; 82607; 83735; 84443; 85025 ==